=== PATIENT | female | born 1970 | race Caucasian/White ===

== ENCOUNTER 2016-11-17 08:07 | Emergency (ER) | payer OTHER ==
[~2016-11-17] VITALS: Ht 154.9 cm; Wt 107.3 kg
[~2016-11-17 08:07] MED LIST: ESTR1TAB2 PO; LEVO-18 PO; LOSARTAN-HCTZ PO; OXYB10TA13 PO
[2016-11-17 08:11] VITALS: TEMP 36.4; Ht 154.9 cm; Wt 107.3 kg
[2016-11-17] MEDS ORDERED: IBUPROFEN 800 MG TAB PO STA (08:26)
[2016-11-17] MEDS ORDERED: ASCA500 PO (08:29)
[2016-11-17] MEDS ORDERED: ZLF/100 PO (08:29)
[2016-11-17] MEDS ORDERED: ESOM20CA PO (08:29)
[2016-11-17] MEDS ORDERED: LPT10 PO (08:29)
--- NOTE | 2016-11-17 08:45 | DIAGNOSTIC IMAGING REPORT ---
CHEST ONE VIEW PORTABLE CLINICAL HISTORY: Hypertension. COMPARISON STUDY: Chest radiograph April 02, 2012. FINDINGS: Lower lung volumes are normal. No pneumothorax or pleural effusion is present. Linear left basilar opacity reflects subsegmental atelectasis or scarring. Pulmonary vascularity is normal. Cardiomediastinal silhouette is normal. Note is made of a possible opacity within the medial left lung base. IMPRESSION: Possible opacity within the medial left lung base. This could reflect artifact, airspace disease or a hiatal hernia. PA and lateral chest radiographs are recommended for further evaluation. Electronically signed by: Devonte Weber M.D. 11/17/2016 8:44 AM Dictated Date/Time: 11/17/2016 8:39 AM
--- NOTE | 2016-11-17 08:55 | EMERGENCY ROOM VISIT NOTE ---
History First contact with patient: 08:14 Chief Complaint: HYPERTENSION Stated Complaint: HIGH BLOOD PRESSURE History of Present Illness The patient is a 46 year old female who presents to the Emergency Room with complaints of high blood pressure. 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 She states that her blood pressure was 155/101. She states this is unusual for her. One week ago, she had her blood pressure checked at her doctor's office and it was 118/71. She states that today, she has a throbbing headache which she rates a 6/10 and blurred vision. The headache is not unusual for her, as she does frequently get headaches. The patient states that today, she checked her blood pressure and it was 166/108, which prompted her to come here. She has been on blood pressure medication in the past, but states that she was taken off this because her blood pressure was dropping too low. She did start a new supplement approximately one week ago called [employer]. She states this is a mix of vitamins that she is taking for weight loss. She denies a chest pain or shortness of breath. Review of Systems A complete 10 point review of systems was reviewed with the patient with pertinent positives and negatives as per history of present illness. All else were negative. Past Medical/Surgical History Medical Problems: (1) Benign hypertension (2) Bladder Surgery (3) Endometriosis s/p TAHBSO Social History Smoking Status: Never Smoker Alcohol Use: occasionally Drug Use: none Current/Historical Medications Scheduled Ascorbic Acid (Vitamin C), 1,500 MG PO DAILY Atorvastatin (Atorvastatin Calcium), 10 MG PO DAILY Esomeprazole Magnesium (Nexium), 40 MG PO DAILY Estradiol (Estrace), 1 MG PO DAILY Oxybutynin Chloride Er (Ditropan Xl), 15 MG PO DAILY Sertraline HCl (Sertraline HCl), 100 MG PO DAILY Physical Exam Vital Signs Date Time Temp Pulse Resp B/P (MAP) Pulse Ox O2 Delivery O2 Flow Rate FiO2 11/17/16 11:48 72 18 154/102 96 11/17/16 11:09 65 16 154/99 95 Room Air 11/17/16 09:53 68 18 185/109 98 Room Air 11/17/16 08:27 76 11/17/16 08:11 36.4 72 18 169/110 96 Room Air Physical Exam VITALS: Vitals are noted on the nurse's note and reviewed by myself. Vital signs stable. GENERAL: This is a 46-year-old female, in no acute distress, nondiaphoretic, well-developed well-nourished. HEAD: Normocephalic atraumatic. EARS: External auditory canals clear, tympanic membranes pearly zhong without erythema or effusion bilaterally. EYES: Pupils equal round and reactive to light and accommodation. Conjunctivae without injection, sclerae without icterus. Extraocular movements intact. MOUTH: Mucous membranes moist. NECK: Supple without nuchal rigidity. No lymphadenopathy. Cervical spine is nontender. HEART: Regular rate and rhythm without murmurs gallops or rubs. LUNGS: Clear to auscultation bilaterally without wheezes, rales or rhonchi. MUSCULOSKELETAL: Strength 5/5 throughout. NEURO: Patient was alert and oriented to person place and time. No focal neurological deficits. Medical Decision & Procedures ER Provider Diagnostic Interpretation: CHEST ONE VIEW PORTABLE CLINICAL HISTORY: Hypertension. COMPARISON STUDY: Chest radiograph April 02, 2012. FINDINGS: Lower lung volumes are normal. No pneumothorax or pleural effusion is present. Linear left basilar opacity reflects subsegmental atelectasis or scarring. Pulmonary vascularity is normal. Cardiomediastinal silhouette is normal. Note is made of a possible opacity within the medial left lung base. IMPRESSION: Possible opacity within the medial left lung base. This could reflect artifact, airspace disease or a hiatal hernia. PA and lateral chest radiographs are recommended for further evaluation. Laboratory Results 11/17/16 09:00 Red Blood Count 4.59, Mean Corpuscular Volume 86.7, Mean Corpuscular Hemoglobin 29.6, Mean Corpuscular Hemoglobin Concent 34.2, Mean Platelet Volume 10.4, Neutrophils (%) (Auto) 45.5, Lymphocytes (%) (Auto) 42.7, Monocytes (%) (Auto) 7.7, Eosinophils (%) (Auto) 3.3, Basophils (%) (Auto) 0.7, Neutrophils # (Auto) 3.13, Lymphocytes # (Auto) 2.94, Monocytes # (Auto) 0.53, Eosinophils # (Auto) 0.23, Basophils # (Auto) 0.05 11/17/16 09:00 Test 11/17/16 09:00 White Blood Count 6.89 K/uL (4.8-10.8) Red Blood Count 4.59 M/uL (4.2-5.4) Hemoglobin 13.6 g/dL (12.0-16.0) Hematocrit 39.8 % (37-47) Mean Corpuscular Volume 86.7 fL (80-100) Mean Corpuscular Hemoglobin 29.6 pg (25-34) Mean Corpuscular Hemoglobin Concent 34.2 g/dl (32-36) Platelet Count 258 K/uL (130-400) Mean Platelet Volume 10.4 fL (7.4-10.4) Neutrophils (%) (Auto) 45.5 % Lymphocytes (%) (Auto) 42.7 % Monocytes (%) (Auto) 7.7 % Eosinophils (%) (Auto) 3.3 % Basophils (%) (Auto) 0.7 % Neutrophils # (Auto) 3.13 K/uL (1.4-6.5) Lymphocytes # (Auto) 2.94 K/uL (1.2-3.4) Monocytes # (Auto) 0.53 K/uL (0.11-0.59) Eosinophils # (Auto) 0.23 K/uL (0-0.5) Basophils # (Auto) 0.05 K/uL (0-0.2) RDW Standard Deviation 40.8 fL (36.4-46.3) RDW Coefficient of Variation 12.8 % (11.5-14.5) Immature Granulocyte % (Auto) 0.1 % Immature Granulocyte # (Auto) 0.01 K/uL (0.00-0.02) Anion Gap 7.0 mmol/L (3-11) Est Creatinine Clear Calc Drug Dose 86.4 ml/min Estimated GFR () 87.6 Estimated GFR (Non- 75.6 BUN/Creatinine Ratio 23.2 (10-20) Calcium Level 9.4 mg/dl (8.5-10.1) Total Bilirubin 0.8 mg/dl (0.2-1) Aspartate Amino Transf (AST/SGOT) 33 U/L (15-37) Alanine Aminotransferase (ALT/SGPT) 39 U/L (12-78) Alkaline Phosphatase 138 U/L (45-117) Troponin I < 0.015 ng/ml (0-0.045) Total Protein 7.5 gm/dl (6.4-8.2) Albumin 3.9 gm/dl (3.4-5.0) Globulin 3.6 gm/dl (2.5-4.0) Albumin/Globulin Ratio 1.1 (0.9-2) Thyroid Stimulating Hormone (TSH) 1.360 uIu/ml (0.300-4.500) Medications Administered Medications (Trade) Dose Ordered Sig/Jailene Route Start Time Stop Time Status Last Admin Dose Admin Ibuprofen (Motrin Tab) 800 mg NOW STAT PO 11/17/16 08:26 11/17/16 08:27 DC 11/17/16 08:50 800 MG ED Course The patient was evaluated as above. Labs were drawn and IV access was obtained. Patient was reevaluated and blood pressure was rechecked. I had ordered 10 mg labetalol, however patient's BP is improved and this was not given. Discharge instructions were reviewed with the patient. The patient verbalized understanding of my assessment and treatment plan and was discharged home in good condition. Medical Decision Differential diagnosis includes uncontrolled hypertension, hypertensive urgency , hypertensive emergency, among others. The patient is a 46-year-old female who presents today complaining of high blood pressure. The patient checked her blood pressure yesterday and states that it was elevated. She then developed symptoms of a headache, which is not unusual for her. Her blood pressure was elevated on initial exam, however did improve significantly throughout her stay. Labs and EKG were unremarkable. The patient recently started taking an [id number] supplement which does have a stimulant component. I advised the patient to stop taking this. She was agreeable to this. She was instructed to follow-up with her primary care provider closely for blood pressure rechecks. She was agreeable to this. Based on the patient's presentation and work up, I feel the patient is stable for outpatient treatment. The patient was educated to return to the emergency department for any worsening of their current condition or new/concerning symptoms. She will follow up with her PCP. Medication Reconcilliation Current Medication List: was personally reviewed by me Blood Pressure Screening Patient's blood pressure: Elevated blood pressure Blood pressure disposition: Referred to PCP Impression Primary Impression: High blood pressure Departure Information Dispostion Home / Self-Care Condition GOOD Referrals Karan Fofana M.D. (PCP) Patient Instructions My [facility] Additional Instructions Recheck your blood pressure frequently for the next few days. Schedule a follow up appointment with your primary care provider in the next week. Stop taking the supplement. Return here for chest pain, shortness of breath, or any other new/concerning symptoms. Problem Qualifiers Primary Impression: High blood pressure
[2016-11-17 09:11] LABS: BASO % 0.7 %; BASO ABS # 0.05 K/uL (0-0.2); COMPLETE YES; EOS % 3.3 %; HEMATOCRIT 39.8 % (37-47); IG% 0.1 %; LYMPH % 42.7 %; LYMPH ABS # 2.94 K/uL (1.2-3.4); MEAN CELL VOLUME 86.7 fL (80-100); MEAN CORPUSCULAR HEMOGLOBIN 29.6 pg (25-34); MEAN CORPUSCULAR HGB CONC 34.2 g/dl (32-36); MEAN PLATELET VOLUME 10.4 fL (7.4-10.4); MONO % 7.7 %; NEUT % 45.5 %; PLATELET COUNT 258 K/uL (130-400); RED BLOOD COUNT 4.59 M/uL (4.2-5.4); WHITE BLOOD COUNT 6.89 K/uL (4.8-10.8)
[2016-11-17 09:42] LABS: ALT/SGPT 39 U/L (12-78); BLOOD UREA NITROGEN 21 mg/dl (7-18); BUN/CREATININE RATIO 23.2 (10-20); CALCIUM 9.4 mg/dl (8.5-10.1); CARBON DIOXIDE 25 mmol/L (21-32); CHLORIDE 110 mmol/L (98-107); GLUCOSE 100 mg/dl (70-99); POTASSIUM 3.6 mmol/L (3.5-5.1); SODIUM 142 mmol/L (136-145)
[2016-11-17 09:53] LABS: ALB/GLOB RATIO 1.1 (0.9-2); ALKALINE PHOSPHATASE 138 U/L (45-117); AST/SGOT 33 U/L (15-37)
[2016-11-17] MEDS ORDERED: LABETALOL HCL IV 5 MG/ML 20ML IV STA (11:03)
[2016-11-17 11:48] VITALS: BP 154/102; PULSE 72; O2SAT 96
== END 2016-11-17 11:45 | disposition home or self-care (01) ==
LOC: C.EDB 08:07
DX: I10 Essential (primary) hypertension (principal); Z90.710 Acquired absence of both cervix and uterus; Z79.899 Other long term (current) drug therapy

== ENCOUNTER 2017-02-08 20:18 | Emergency (ER) | payer OTHER ==
[~2017-02-08] VITALS: Ht 154.9 cm; Wt 107.8 kg
[~2017-02-08 20:18] MED LIST changes: +ASCA500 PO; +ESOM20CA PO; -LEVO-18 PO; -LOSARTAN-HCTZ PO; +LPT10 PO; +ZLF/100 PO
[2017-02-08 20:21] VITALS: TEMP 36.6; Ht 154.9 cm; Wt 107.8 kg
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
[2017-02-08 20:58] VITALS: O2SAT 98
[2017-02-08] MEDS ORDERED: HYZ/10015 PO (21:07)
[2017-02-08] MEDS ORDERED: OXYB15TA12 PO (21:08)
[2017-02-08 21:12] LABS: ISTAT CREATININE 1.1 mg/dl (0.6-1.3); ISTAT HEMOGLOBIN 13.6 g/dl (12.0-16.0); ISTAT IONIZED CALCIUM 1.21 mmol/l (1.12-1.32)
[2017-02-08] MEDS ORDERED: OPTIRAY 320 IV PRN (21:15)
[2017-02-08] MEDS ORDERED: ACETAMINOPHEN 500 MG TAB PO STA (21:46)
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
[2017-02-08] MEDS ORDERED: TRAMADOL HCL 50 MG HOME PACK PO ONE (22:15)
[2017-02-08 22:37] VITALS: BP 141/73; PULSE 76; O2SAT 97
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
== END 2017-02-08 22:35 | disposition home or self-care (01) ==
LOC: C.EDB 20:20 → C.EDC 22:35
DX: S30.1XXA Contusion of abdominal wall, initial encounter (principal); S39.012A Strain of muscle, fascia and tendon of lower back, initial encounter; R51 Headache; I10 Essential (primary) hypertension; Z79.899 Other long term (current) drug therapy; V40.5XXA Car driver injured in collision with pedestrian or animal in traffic accident, initial encounter; F17.200 Nicotine dependence, unspecified, uncomplicated

== ENCOUNTER 2017-05-22 15:22 | Emergency (ER) | payer OTHER ==
[~2017-05-22] VITALS: Ht 154.9 cm; Wt 103.1 kg
[~2017-05-22 15:22] MED LIST changes: -OXYB10TA13 PO
[2017-05-22 15:38] VITALS: TEMP 36.7; Ht 154.9 cm; Wt 103.1 kg
[2017-05-22] MEDS ORDERED: ONDANSETRON INJ 2 MG/ML 2 ML VIAL IV STA (16:03)
[2017-05-22] MEDS ORDERED: ACETAMINOPHEN 500 MG TAB PO STA (16:03)
[2017-05-22] MEDS ORDERED: FLUT0.15 NAE (16:37)
[2017-05-22] MEDS ORDERED: NXM/40 PO (16:37)
[2017-05-22 16:40] LABS: BASO % 0.4 %; BASO ABS # 0.04 K/uL (0-0.2); EOS % 2.1 %; EOS ABS # 0.19 K/uL (0-0.5); HEMATOCRIT 38.5 % (37-47); HEMOGLOBIN 13.3 g/dL (12.0-16.0); IG# 0.01 K/uL (0.00-0.02); LYMPH % 39.8 %; LYMPH ABS # 3.54 K/uL (1.2-3.4); MEAN CELL VOLUME 86.3 fL (80-100); MEAN CORPUSCULAR HEMOGLOBIN 29.8 pg (25-34); MEAN CORPUSCULAR HGB CONC 34.5 g/dl (32-36); MEAN PLATELET VOLUME 10.6 fL (7.4-10.4); MONO % 7.4 %; MONO ABS # 0.66 K/uL (0.11-0.59); NEUT % 50.2 %; NEUT ABS # 4.45 K/uL (1.4-6.5); PLATELET COUNT 245 K/uL (130-400); RED CELL DISTRIBUTION WIDTH CV 12.8 % (11.5-14.5); RED CELL DISTRIBUTION WIDTH SD 40.9 fL (36.4-46.3); WHITE BLOOD COUNT 8.89 K/uL (4.8-10.8)
--- NOTE | 2017-05-22 16:57 | DIAGNOSTIC IMAGING REPORT ---
GALLBLADDER-ABD LIMITED HISTORY: 46 years-old Female RUQ abd pain acute right upper quadrant abdominal pain COMPARISON: CT abdomen and pelvis 02/08/2017 TECHNIQUE: Multiple real-time sonographic images of the abdominal right upper quadrant were obtained assessing grayscale appearance and color flow FINDINGS: The imaged pancreas appears unremarkable. There is increased echogenicity of the liver with poor through transmission compatible with hepatic steatosis. No focal hepatic mass lesions or intrahepatic biliary ductal dilation. Liver measures up to 17.2 cm in length. The gallbladder is mildly contracted and demonstrates no wall thickening, cholelithiasis or pericholecystic fluid. Common bile duct is normal, 4 mm. The imaged right kidney is within normal limits without hydronephrosis. IMPRESSION: 1. No cholelithiasis or sonographic evidence of acute cholecystitis. 2. No biliary ductal dilation. 3. Hepatic steatosis. The above report was generated using voice recognition software. It may contain grammatical, syntax or spelling errors. Electronically signed by: Preston Negron M.D. 05/22/2017 4:56 PM Dictated Date/Time: 05/22/2017 4:54 PM
[2017-05-22 17:10] LABS: BLOOD UREA NITROGEN 21 mg/dl (7-18); CREATININE 0.99 mg/dl (0.60-1.20); GLUCOSE 89 mg/dl (70-99); SODIUM 140 mmol/L (136-145)
[2017-05-22 17:11] LABS: ALBUMIN 3.8 gm/dl (3.4-5.0); CALCIUM 9.3 mg/dl (8.5-10.1); CARBON DIOXIDE 23 mmol/L (21-32); POTASSIUM 3.5 mmol/L (3.5-5.1); TOTAL PROTEIN 7.6 gm/dl (6.4-8.2)
[2017-05-22 17:12] LABS: ALT/SGPT 33 U/L (12-78); AST/SGOT 25 U/L (15-37)
[2017-05-22 17:13] LABS: ALKALINE PHOSPHATASE 125 U/L (45-117); LIPASE 186 U/L (73-393)
[2017-05-22] MEDS ORDERED: KETOROLAC TROMETHAMINE 30 MG/ML VIAL IV STA (17:18)
[2017-05-22 18:40] VITALS: BP 134/82; PULSE 64; O2SAT 98
[2017-05-22] MEDS ORDERED: TRAM-10 PO (18:42)
[2017-05-22] MEDS ORDERED: ONDA4TAB10 SL (18:45)
--- NOTE | 2017-05-22 18:45 | EMERGENCY ROOM VISIT NOTE ---
History First contact with patient: 15:42 Chief Complaint: ABDOMINAL PAIN Stated Complaint: NAUSEATED AFTER EATING, PAIN IN RIGHT UPPER BELLY, Nursing Triage Summary: Patient states she has been having nausea after she eats for weeks. patient states she has pain in RUQ History of Present Illness The patient is a 46 year old female who presents to the Emergency Room via private vehicle with complaints of "nauseated after eating, pain in right upper belly". The patient states that for the past few weeks now she has been experiencing postprandial nausea and pain in the right upper quadrant. She states that she is concerned it is her gallbladder. It is been worsening over time. The pain is a 4/10 currently but at times will increase. She also notes a dull pain that will radiate to the right arm. She states that a couple years ago she had similar symptoms and had a gallbladder workup which was negative without treatment. There is been noted vomiting, or respiratory issues. There is no chest pain. She notes a mild fever this morning of 99.5F. There was some diarrhea this morning. Review of Systems A complete 10-point Review of Systems was discussed with the patient, with pertinent positives and negatives listed in the History of Present Illness. All remaining Review of Systems questions can be considered negative unless otherwise specified. Past Medical/Surgical History Medical Problems: (1) Benign hypertension (2) Bladder Surgery (3) Endometriosis s/p TAHBSO Family History No pertinent family history Social History Smoking Status: Former Smoker Alcohol Use: occasionally Drug Use: none Occupation Status: employed Current/Historical Medications Scheduled Ascorbic Acid (Vitamin C), 1,500 MG PO DAILY Atorvastatin (Lipitor), 10 MG PO DAILY Esomeprazole Magnesium (Nexium), 40 MG PO DAILY Estradiol (Estrace), 1 MG PO DAILY Hctz/Losartan (Hyzaar 25MG/100MG), 1 TAB PO DAILY Ondasetron Odt (Zofran Odt), 4 MG SL Q6H Oxybutynin Chloride (Ditropan Xl), 15 MG PO DAILY Sertraline HCl (Sertraline HCl), 100 MG PO DAILY Scheduled PRN Fluticasone Propionate (Nasal) (Flonase Allergy Relief), 2 SPRAYS DEIGO DAILY PRN for Allergy Symptoms Tramadol (Ultram), 1 TAB PO TID PRN for Pain Allergies Coded Allergies: JAI Inhibitors (Verified Adverse Reaction, Unknown, Cough, 05/22/17) Penicillins (Unverified Adverse Reaction, Unknown, YEAST INFECTION, 05/22/17 ) Physical Exam Vital Signs Date Time Temp Pulse Resp B/P (MAP) Pulse Ox O2 Delivery O2 Flow Rate FiO2 05/22/17 18:40 64 16 134/82 98 Room Air 05/22/17 17:13 141/78 05/22/17 17:11 62 18 96 Room Air 05/22/17 15:38 36.7 70 20 126/76 97 Room Air Physical Exam VITAL SIGNS - Vital signs and nursing notes were reviewed. Stable. GENERAL - 46-year-old female appearing her stated age who is in no acute distress. Communicates well with provider and answers questions appropriately. SKIN - Without rashes. No petechial rashes. HEAD - NC/AT. EYES - PERRL with EOMI bilaterally. Sclera anicteric. EARS - No deformities of external structures noted on gross examination bilaterally. NOSE - Midline and without cyanosis. No epistaxis or purulent drainage noted. MOUTH/OROPHARYNX - Without perioral cyanosis. LUNGS - Chest wall symmetric without accessory muscle use, intercostals retractions, or central cyanosis. Normal vesicular breath sounds CTA B/L. No wheezes, rales, or rhonchi appreciated. CARDIAC - RRR with S1/S2. No murmur, rubs, or gallops appreciated. ABDOMEN - Abdominal contour normal without pulsations or visible masses. BS normoactive all four quadrants. Right upper quadrant abdominal tenderness with positive Melgar sign noted. No other abdominal tenderness noted. Medical Decision & Procedures ER Provider Diagnostic Interpretation: GALLBLADDER-ABD LIMITED HISTORY: 46 years-old Female RUQ abd pain acute right upper quadrant abdominal pain COMPARISON: CT abdomen and pelvis 02/08/2017 TECHNIQUE: Multiple real-time sonographic images of the abdominal right upper quadrant were obtained assessing grayscale appearance and color flow FINDINGS: The imaged pancreas appears unremarkable. There is increased echogenicity of the liver with poor through transmission compatible with hepatic steatosis. No focal hepatic mass lesions or intrahepatic biliary ductal dilation. Liver measures up to 17.2 cm in length. The gallbladder is mildly contracted and demonstrates no wall thickening, cholelithiasis or pericholecystic fluid. Common bile duct is normal, 4 mm. The imaged right kidney is within normal limits without hydronephrosis. IMPRESSION: 1. No cholelithiasis or sonographic evidence of acute cholecystitis. 2. No biliary ductal dilation. 3. Hepatic steatosis. The above report was generated using voice recognition software. It may contain grammatical, syntax or spelling errors. Electronically signed by: Preston Negron M.D. 05/22/2017 4:56 PM Dictated Date/Time: 05/22/2017 4:54 PM Laboratory Results 05/22/17 16:15 Red Blood Count 4.46, Mean Corpuscular Volume 86.3, Mean Corpuscular Hemoglobin 29.8, Mean Corpuscular Hemoglobin Concent 34.5, Mean Platelet Volume 10.6, Neutrophils (%) (Auto) 50.2, Lymphocytes (%) (Auto) 39.8, Monocytes (%) (Auto) 7.4, Eosinophils (%) (Auto) 2.1, Basophils (%) (Auto) 0.4, Neutrophils # (Auto) 4.45, Lymphocytes # (Auto) 3.54, Monocytes # (Auto) 0.66, Eosinophils # (Auto) 0.19, Basophils # (Auto) 0.04 05/22/17 16:15 Test 05/22/17 16:07 05/22/17 16:15 Urine Color YELLOW Urine Appearance CLEAR (CLEAR) Urine pH 5.5 (4.5-7.5) Urine Specific [place] 1.018 (1.000-1.030) Urine Protein NEG (NEG) Urine Glucose (UA) NEG (NEG) Urine Ketones NEG (NEG) Urine Occult Blood NEG (NEG) Urine Nitrite NEG (NEG) Urine Bilirubin NEG (NEG) Urine Urobilinogen NEG (NEG) Urine Leukocyte Esterase MODERATE (NEG) Urine WBC (Auto) 5-10 /hpf (0-5) Urine RBC (Auto) 0-4 /hpf (0-4) Urine Hyaline Casts (Auto) 1-5 /lpf (0-5) Urine Epithelial Cells (Auto) 20-30 /lpf (0-5) Urine Bacteria (Auto) NEG (NEG) White Blood Count 8.89 K/uL (4.8-10.8) Red Blood Count 4.46 M/uL (4.2-5.4) Hemoglobin 13.3 g/dL (12.0-16.0) Hematocrit 38.5 % (37-47) Mean Corpuscular Volume 86.3 fL (80-100) Mean Corpuscular Hemoglobin 29.8 pg (25-34) Mean Corpuscular Hemoglobin Concent 34.5 g/dl (32-36) Platelet Count 245 K/uL (130-400) Mean Platelet Volume 10.6 fL (7.4-10.4) Neutrophils (%) (Auto) 50.2 % Lymphocytes (%) (Auto) 39.8 % Monocytes (%) (Auto) 7.4 % Eosinophils (%) (Auto) 2.1 % Basophils (%) (Auto) 0.4 % Neutrophils # (Auto) 4.45 K/uL (1.4-6.5) Lymphocytes # (Auto) 3.54 K/uL (1.2-3.4) Monocytes # (Auto) 0.66 K/uL (0.11-0.59) Eosinophils # (Auto) 0.19 K/uL (0-0.5) Basophils # (Auto) 0.04 K/uL (0-0.2) RDW Standard Deviation 40.9 fL (36.4-46.3) RDW Coefficient of Variation 12.8 % (11.5-14.5) Immature Granulocyte % (Auto) 0.1 % Immature Granulocyte # (Auto) 0.01 K/uL (0.00-0.02) Anion Gap 9.0 mmol/L (3-11) Est Creatinine Clear Calc Drug Dose 76.7 ml/min Estimated GFR () 78.1 Estimated GFR (Non- 67.4 BUN/Creatinine Ratio 21.2 (10-20) Calcium Level 9.3 mg/dl (8.5-10.1) Total Bilirubin 0.6 mg/dl (0.2-1) Aspartate Amino Transf (AST/SGOT) 25 U/L (15-37) Alanine Aminotransferase (ALT/SGPT) 33 U/L (12-78) Alkaline Phosphatase 125 U/L (45-117) Troponin I < 0.015 ng/ml (0-0.045) Total Protein 7.6 gm/dl (6.4-8.2) Albumin 3.8 gm/dl (3.4-5.0) Globulin 3.8 gm/dl (2.5-4.0) Albumin/Globulin Ratio 1.0 (0.9-2) Lipase 186 U/L (73-393) Chemistry Specimen Hemolysis Medications Administered Medications (Trade) Dose Ordered Sig/Jailene Route Start Time Stop Time Status Last Admin Dose Admin Acetaminophen (Tylenol Tab) 500 mg NOW STAT PO 05/22/17 16:03 05/22/17 16:04 DC 05/22/17 16:22 500 MG Ondansetron HCl (Zofran Inj) 4 mg NOW STAT IV 05/22/17 16:03 05/22/17 16:04 DC 05/22/17 16:22 4 MG Ketorolac Tromethamine (Toradol Inj) 30 mg NOW STAT IV 05/22/17 17:18 05/22/17 17:20 DC 05/22/17 17:42 30 MG Medical Decision Patient was seen and evaluated as above. She presents to us today with right upper quadrant abdominal pain worse after eating. After obtaining a thorough history and physical examination the above work up was performed. Ultrasound was performed. There is some contraction, however no evidence of acute cholecystitis. She is afebrile. No leukocytosis. No anemia. Metabolic panel reveals no kidney or liver failure. Troponin negative. Bedside EKG was also performed secondary to the location of the patient's pain in the abdomen and reveals normal sinus rhythm per my interpretation, rate of 60 bpm. There is no ectopy or ischemic change and was compared to EKG performed on November 2016 and no significant change was found. I suspect the patient is likely experiencing biliary colic. I do recommend follow-up with family doctor and potential referral to general surgeon. She is to return with worsening. She will be prescribed a short course of pain medication. While here she was given Toradol, Tylenol and Zofran. She appears stable for outpatient management. The patient was educated upon management, had questions answered prior to discharge, and was discharged home in good condition. In the evaluation and treatment of this patient the following differential diagnoses were entertained: Acute cholecystitis, biliary colic, pancreatitis, ascending cholangitis, among others. Impression Primary Impression: RUQ abdominal pain Departure Information Dispostion Home / Self-Care Condition GOOD Prescriptions Ondasetron Odt (ZOFRAN ODT) 4 Mg Tab 4 MG SL Q6H for Nausea, #15 TAB Prov: Romel Green, JOSÉ MIGUEL 05/22/17 Tramadol (Ultram) 50 Mg Tab 1 TAB PO TID Y for Pain for 3 Days, #9 TAB For initial treatment Prov: Romel Green PA-C 05/22/17 Referrals Karan Fofana M.D. (PCP) Patient Instructions [facility] Additional Instructions You have been treated in the Emergency Department your Abdominal Pain. Laboratory results and imaging studies have ruled out any emergent causes for your abdominal pain which would warrant admission or surgery today. You have been prescribed Tramadol to be used for pain control. This is a narcotic medication. You cannot drive or consume alcohol while on this medicine. This medicine should only be used for pain that cannot be controlled with [id number] pain medicines. You have been prescribed zofran to be used for any nausea or vomiting. Take as prescribed. For pain control, you can use the following [id number] medicines: - Regular strength (325mg/tab) Tylenol (acetaminophen) 2 tabs every 4-6 hours as needed. Do not exceed 12 tablets in a 24 hour period. Avoid taking more than 3 grams (3000 mg) of Tylenol per day. This includes any other sources of acetaminophen you may take on a regular basis. - Regular strength (200 mg/tab) Advil (ibuprofen) 1-2 tabs every 4-6 hours as needed. Do not exceed a dose of 3200 mg per day. Drink plenty of water and stay well hydrated. As with any trip to the Emergency Department, you should follow-up with your Primary Care Provider from today's visit. Follow up with Gen surgery for further evaluation and management Dr. Pancho Chaudhry Address: [address] [place] [address] , [place] [address] Return to the emergency department if your symptoms persist despite treatment plan outlined above or if the following symptoms occur: increased fevers, chills , worsening nausea/vomiting, blood in your stool or urine.
[2017-05-22] MEDS ORDERED: HYZ/10015 PO (21:07)
[2017-05-22] MEDS ORDERED: OXYB15TA12 PO (21:08)
== END 2017-05-22 18:49 | disposition home or self-care (01) ==
LOC: C.EDB 15:24 → C.EDC 18:49
DX: R10.11 Right upper quadrant pain (principal); R11.0 Nausea; I10 Essential (primary) hypertension; Z87.890 Personal history of sex reassignment; Z79.899 Other long term (current) drug therapy; Z88.0 Allergy status to penicillin; Z88.8 Allergy status to other drugs, medicaments and biological substances

== ENCOUNTER → 2017-10-20 | Outpatient (CLI) | payer OTHER ==
[~2017-10-20] MED LIST changes: +BENZ100C84 PO; -ESOM20CA PO; +FLUT0.15 NAE; +HYZ/10015 PO; +NXM/40 PO; +ONDA4TAB10 SL; +OXYB15TA12 PO; +VNTHFA/IN INH
== END | disposition home or self-care (01) ==
LOC: C.RDSM 09:50
PROVIDERS: ATTEND Physical Medicine & Rehabilitation Sports Medicine
DX: M25.561 Pain in right knee (principal); M25.562 Pain in left knee; M79.672 Pain in left foot

== ENCOUNTER 2021-07-02 16:45 | Inpatient (IN) ==
--- NOTE | 2021-07-02 17:30 | Emergency Department Note ---
History of Present Illness General Chief complaint: Flank Pain Stated complaint: PAIN BY KIDNEY AREA, BLOOD IN URINE Time Seen by Provider: 07/02/21 17:24 History of Present Illness Maximum Pain Intensity: 8 This is a 50-year-old female that presents to the emergency department via private vehicle with complaints of "pain by kidney area, blood in urine". The patient notes earlier today this morning she began with pain that radiates to the left lower quadrant. She also notes blood tinged urine. She denies any trauma, injury, fevers, chills, nausea or vomiting. She does note a history of gastric bypass. She denies any history of kidney stones. No other urinary symptoms. Current pain 10/24. Home Medications Medication Instructions Recorded Confirmed Type atorvastatin 10 mg tablet 10 mg PO HS 07/02/21 07/02/21 History biotin 800 mcg tablet 800 mcg PO DAILY 07/02/21 07/02/21 History calcium carbonate 500 mg-vitamin 2 tab PO HS 07/02/21 07/02/21 History D3 3.125 mcg (125 unit) tablet ferrous sulfate 325 mg (65 mg 325 mg PO DAILY 07/02/21 07/02/21 History iron) tablet oxybutynin chloride 15 mg 15 mg PO DAILY 07/02/21 07/02/21 History tablet,extended release 24 hr pantoprazole 40 mg tablet,delayed 40 mg PO DAILY 07/02/21 07/02/21 History release pediatric multivitamin no.76 2 tab PO DAILY 07/02/21 07/02/21 History (Flintstones Complete) sertraline 100 mg tablet 150 mg PO DAILY 07/02/21 07/02/21 History Allergies Allergy/AdvReac Type Severity Reaction Status Date / Time prednisone Allergy Unknown UNKNOWN Verified 07/02/21 22:20 JAI Inhibitors AdvReac Unknown Cough Verified 07/02/21 22:20 Penicillins AdvReac Unknown YEAST Verified 07/02/21 22:20 INFECTION Past Med/Surg History Medical History Asthma Dyslipidemia GERD (gastroesophageal reflux disease) High blood pressure Surgical History History of hysterectomy Social History Smoking Status: Former smoker Tobacco Type: Cigarettes Do You Dip or Chew Tobacco: No; Hx Alcohol Use: Yes Alcohol type: hard liquor Hx Substance Use: No Preferred Language: Bolivian Communication Ability: Effective Car Supervisor Required: No Beliefs That Will Affect Care: None Current Living Situation: Spouse Other Information That Helps Us Care for You: No Feels Safe at Home: Yes Safety Concerns: Feels Safe At This Time Assistive Devices: None Review of Systems A total of 10 systems reviewed and were otherwise negative Physical Exam Vital Signs Vital Signs - 24 hr 07/02/21 16:52 07/02/21 20:10 07/02/21 21:33 Temperature 36.6 C Temperature Source Temporal Artery Scan Pulse Rate 71 Pulse Rate [Apical] 70 72 Pulse Rhythm [Apical] Regular Pulse Strength [Apical] Normal Respiratory Rate 17 20 19 Respiratory Effort / Characteristics Non-Labored Spontaneous Non-Labored Spontaneous Respiratory Depth Normal Normal Respiratory Pattern Regular Regular Blood Pressure 144/86 H Blood Pressure [Left Arm] 155/90 H 126/82 Blood Pressure Mean 105 Blood Pressure Mean [Left Arm] 111 96 Blood Pressure Position Sitting Blood Pressure Position [Left Arm] Semi-fowlers Pulse Oximetry 99 97 99 Oxygen Delivery Method Room Air Room Air Room Air Sepsis Recent Fever Within 48 Hours No Sepsis New/Unexplained Change in Mental Status N/A Sepsis Action Taken by Nursing No Action Required VITAL SIGNS - Vital signs and nursing notes were reviewed. Stable and afebrile. GENERAL -50-year-old female appearing her stated age who is in no acute distress. Communicates well with provider and answers questions appropriately. SKIN - Without rashes. No meningeal or petechial rash. HEAD - NC/AT. MOUTH/OROPHARYNX - Without perioral cyanosis. NECK - Neck with FROM. No nuchal rigidity. LUNGS - Chest wall symmetric without accessory muscle use, intercostals retra ctions, or central cyanosis. Normal vesicular breath sounds CTA B/L. No wheezes, rales, or rhonchi appreciated. CARDIAC - RRR with S1/S2. No murmur, rubs, or gallops appreciated. ABDOMEN - Abdominal contour normal without pulsations or visible masses. BS normoactive all four quadrants. No tenderness, palpable masses, hepatosplenomegaly, or ascites noted. EXTREMITIES - No clubbing or peripheral cyanosis. +5/5 strength noted in UE/LE bilaterally. NEUROLOGIC - Cranial nerves II through XII grossly intact. PSYCH - A&O, and cooperates fully with examiner. Pt is very pleasant and interacts well with examiner. Course Administered Medications Sodium Chloride (Nss 1000ml) 1,000 mls @ 125 mls/hr IV .Q8H NAS Stop: 08/02/21 01:10 Last Admin: 07/03/21 01:21 Dose: 125 mls/hr Documented by: [id number] Tamsulosin HCl (Tamsulosin Hcl 0.4 Mg Cap) 0.4 mg PO HS NAS Stop: 08/02/21 01:10 Last Admin: 07/03/21 01:56 Dose: 0.4 mg Documented by: [id number] Discontinued Medications Sodium Chloride (Nss 1000ml) 500 mls @ 500 mls/hr IV .Q1H ONE Stop: 07/02/21 18:32 Last Infusion: 07/02/21 18:51 Dose: 0 mls/hr Documented by: [id number] Admin: 07/02/21 17:42 Dose: 500 mls/hr Documented by: [id number] Morphine Sulfate (Morphine Sulfate 4 Mg/Ml 1 Ml Carp\\Vial) 4 mg IV NOW STA Stop: 07/02/21 17:34 Last Admin: 07/02/21 17:40 Dose: 4 mg Documented by: [id number] Morphine Sulfate (Morphine Sulfate 4 Mg/Ml 1 Ml Carp\\Vial) 4 mg IV NOW STA Stop: 07/02/21 19:16 Last Admin: 07/02/21 19:33 Dose: 4 mg Documented by: [id number] Morphine Sulfate (Morphine Sulfate 2 Mg/Ml Carp) 2 mg IV NOW STA Stop: 07/02/21 23:53 Last Admin: 07/03/21 00:24 Dose: 2 mg Documented by: [id number] Ondansetron HCl (Ondansetron Inj 2 Mg/Ml 2 Ml Vial) 4 mg IV NOW STA Stop: 07/02/21 17:34 Last Admin: 07/02/21 17:40 Dose: 4 mg Documented by: [id number] Ondansetron HCl (Ondansetron Inj 2 Mg/Ml 2 Ml Vial) 4 mg IV NOW STA Stop: 07/02/21 20:15 Last Admin: 07/02/21 20:17 Dose: 4 mg Documented by: [id number] Medical Decision Making Laboratory Data Result diagrams: 07/02/21 17:38 07/02/21 17:38 Lab Results 07/02/21 07/02/21 07/02/21 Range/Units 17:33 17:38 17:38 WBC 9.85 (4.8-10.8) K/uL RBC 4.41 (4.2-5.4) M/uL Hgb 14.0 (12.0-16.0) g/dL Hct 40.1 (37-47) % MCV 90.9 (80-100) fL MCH 31.7 (25-34) pg MCHC 34.9 (32-36) g/dL RDW Std Deviation 42.9 (36.4-46.3) fL RDW Coeff of Yoshi 12.9 (11.5-14.5) % Plt Count 271 (130-400) K/uL MPV 10.6 H (7.4-10.4) fL Immature Gran % (Auto) 0.2 % Neut % (Auto) 61.6 % Lymph % (Auto) 28.5 % Bailey % (Auto) 7.4 % Eos % (Auto) 1.7 % Baso % (Auto) 0.6 % Neut # (Auto) 6.06 (1.4-6.5) K/uL Lymph # (Auto) 2.81 (1.2-3.4) K/uL Bailey # (Auto) 0.73 H (0.11-0.59) K/uL Eos # (Auto) 0.17 (0-0.5) K/uL Baso # (Auto) 0.06 (0-0.2) K/uL Immature Gran # (Auto) 0.02 (0.00-0.02) K/uL Sodium 141 (136-145) mmol/L Potassium 3.6 (3.5-5.1) mmol/L Chloride 110 H (98-107) mmol/L Carbon Dioxide 25 (21-32) mmol/L Anion Gap 6 (3-11) BUN 18 (6-23) mg/dl Creatinine 0.72 (0.6-1.2) mg/dl Est Cr Clr Drug Dosing 85.2 ml/min Est GFR ( Amer) 111.6 ml/min Est GFR (Non-Af Amer) 96.3 ml/min BUN/Creatinine Ratio 25.0 H (10-20) Glucose 151 H (70-99(Fasting)) mg/dl Calcium 9.7 (8.5-10.1) mg/dl Total Bilirubin 0.8 (0.2-1.0) mg/dl AST 34 (13-39) U/L ALT 38 (7-52) U/L Alkaline Phosphatase 149 H (34-104) U/L Total Protein 7.1 (6.0-8.3) gm/dl Albumin 4.2 (3.4-5.0) gm/dl Globulin 2.9 (2.5-4.0) gm/dl Albumin/Globulin Ratio 1.4 (0.9-2) Urine Color Yellow Urine Appearance Clear (Clear) Urine pH 6.0 (4.5-7.5) Ur Specific Sparks 1.007 (1.000-1.030) Urine Protein Negative (Negative) Urine Glucose (UA) Negative (Negative) Urine Ketones Negative (Negative) Urine Blood 3+ H (Negative) Urine Nitrite Negative (Negative) Urine Bilirubin Negative (Negative) Urine Urobilinogen Negative (Negative) Ur Leukocyte Esterase 2+ H (Negative) Urine WBC (Auto) 10-30 H (0-5) /hpf Urine RBC (Auto) >30 H (0-4) /hpf U Hyaline Cast (Auto) 1-5 (0-5) /lpf U Epithel Cells (Auto) 10-20 H (0-5) /lpf Urine Bacteria (Auto) Negative (Negative) Urine Yeast Not Reportable SARS-CoV-2, RNA, NAAT (NEGATIVE) 07/02/21 07/02/21 Range/Units 20:02 21:25 WBC (4.8-10.8) K/uL RBC (4.2-5.4) M/uL Hgb (12.0-16.0) g/dL Hct (37-47) % MCV (80-100) fL MCH (25-34) pg MCHC (32-36) g/dL RDW Std Deviation (36.4-46.3) fL RDW Coeff of Yoshi (11.5-14.5) % Plt Count (130-400) K/uL MPV (7.4-10.4) fL Immature Gran % (Auto) % Neut % (Auto) % Lymph % (Auto) % Bailey % (Auto) % Eos % (Auto) % Baso % (Auto) % Neut # (Auto) (1.4-6.5) K/uL Lymph # (Auto) (1.2-3.4) K/uL Bailey # (Auto) (0.11-0.59) K/uL Eos # (Auto) (0-0.5) K/uL Baso # (Auto) (0-0.2) K/uL Immature Gran # (Auto) (0.00-0.02) K/uL Sodium (136-145) mmol/L Potassium (3.5-5.1) mmol/L Chloride (98-107) mmol/L Carbon Dioxide (21-32) mmol/L Anion Gap (3-11) BUN (6-23) mg/dl Creatinine (0.6-1.2) mg/dl Est Cr Clr Drug Dosing ml/min Est GFR ( Amer) ml/min Est GFR (Non-Af Amer) ml/min BUN/Creatinine Ratio (10-20) Glucose (70-99(Fasting)) mg/dl Calcium (8.5-10.1) mg/dl Total Bilirubin (0.2-1.0) mg/dl AST (13-39) U/L ALT (7-52) U/L Alkaline Phosphatase (34-104) U/L Total Protein (6.0-8.3) gm/dl Albumin (3.4-5.0) gm/dl Globulin (2.5-4.0) gm/dl Albumin/Globulin Ratio (0.9-2) Urine Color Yellow Urine Appearance Clear (Clear) Urine pH 6.5 (4.5-7.5) Ur Specific Sparks 1.005 (1.000-1.030) Urine Protein Negative (Negative) Urine Glucose (UA) Negative (Negative) Urine Ketones Negative (Negative) Urine Blood 3+ H (Negative) Urine Nitrite Negative (Negative) Urine Bilirubin Negative (Negative) Urine Urobilinogen Negative (Negative) Ur Leukocyte Esterase 1+ H (Negative) Urine WBC (Auto) 1-5 (0-5) /hpf Urine RBC (Auto) 5-10 H (0-4) /hpf U Hyaline Cast (Auto) 0 (0-5) /lpf U Epithel Cells (Auto) 5-10 H (0-5) /lpf Urine Bacteria (Auto) Negative (Negative) Urine Yeast SARS-CoV-2, RNA, NAAT NEGATIVE (NEGATIVE) Imaging Data Radiologist's Impression: Abdomen/Pelvis CT 07/02/21 17:[address] WITHOUT CONTRAST CT DOSE: 539.88 mGy.cm HISTORY: Acute left-sided flank pain with hematuria L flank pain TECHNIQUE: Multiaxial CT images of the abdomen and pelvis were performed without contrast. A dose lowering technique was utilized adhering to the principles of ALARA. COMPARISON STUDY: CT abdomen and pelvis 02/08/2017 FINDINGS: The imaged lower chest is unremarkable. No pneumatosis or pneumoperitoneum. Prior gastric bypass. The unenhanced spleen, pancreas, is mildly distended gallbladder, adrenal glands and liver appear unremarkable. Unremarkable right kidney. 4 mm nonobstructing calculus of the superior pole left kidney. There are a few cysts of the left kidney measuring up to 3.8 cm. Mild left-sided hydroureteronephrosis with mild perinephric and periureteral inflammatory stranding. There is a 4 mm calcification within the left hemipelvis on image 360. Unremarkable urinary bladder. No adnexal mass lesions. Aorta and IVC are unremarkable. No bowel obstruction or bowel wall thickening. Scattered small bowel air-fluid levels are likely physiologic. Mild colonic diverticulosis. Normal appendix. Unremarkable soft tissues. Degenerative changes of the spine, pelvis and hips. IMPRESSION: 1. Mild left-sided hydroureteronephrosis. There is a 4 mm calcification within the left hemipelvis which likely represents a distal ureteral calculus. Correlate with urinalysis. 2. Nonobstructing left nephrolithiasis. 3. No bowel obstruction or bowel wall thickening. Normal appendix. 4. Additional findings as above. ACT 112: Negative or not required by law. The above report was generated using voice recognition software. It may contain grammatical, syntax or spelling errors. Electronically signed by: Reece Negron M.D. 07/02/2021 6:43 PM [facility] Narrative Patient was seen and evaluated as above in room B10. Review was performed of nursing notes and vital signs. After obtaining a thorough history and physical examination the above work up was performed. Patient presents to us today for evaluation of left flank discomfort and hematuria. She does not have any known history of kidney stones. She clinically appears well. She is nontoxic. No infectious symptoms. Options of care were discussed with the patient. IV access was established. Labs were drawn. No leukocytosis or concerning anemia. No emergent metabolic disturbance. Urinalysis initially revealed what is likely a contaminated sample. This did prompt a urine culture reflex. I was not convinced that there was any infectious etiology to her presentation therefore had repeat sample performed with more of a clean-catch. This revealed what appears to be findings consistent with kidney stone without any associated infection. COVID testing negative. CT scan was obtained of the abdomen pelvis. Results of this as ab ove. Patient does have what appears to be a 4 mm distal left ureteral calculus that is likely obstructing. This is clinically correlated. Patient was provided antiemetics and analgesics here as well as IV fluids. She continued with pain and nausea. It is felt that further evaluation and management is warranted in the inpatient setting. Patient desires to stay in the hospital at the present time given her symptoms. I believe this is reasonable. Case discussed with the hospitalist. Please refer to further documentation regarding her stay. GCS: 15 In the evaluation and treatment of this patient the following differential diagnoses were entertained: UTI, pyelonephritis, kidney stone, obstruction, diverticulitis, among others. Impression & Plan Acute left flank pain, Calculus of distal left ureter, Hydroureteronephrosis Discharge Plan Visit Data Chief Complaint: Flank Pain Stated Complaint: PAIN BY KIDNEY AREA, BLOOD IN URINE ED Provider: Augustin Lombardi ED Midlevel Provider: Romel Green Discharge Problem: Acute left flank pain, Calculus of distal left ureter, Hydroureteronephrosis Patient Disposition: Admitted As Inpatient Condition: Good Discharge Instructions Interventions: ED Discharge Assessment Last Done: 07/03/21 01:02
[2021-07-02] MEDS ORDERED: ONDANSETRON INJ 2 MG/ML 2 ML VIAL IV STA ×2 (17:33→20:14)
[2021-07-02] MEDS ORDERED: SODIUM CHLORIDE 0.9% 1000ML 500 ML IV ONE (17:33)
[2021-07-02] MEDS ORDERED: MoRPHine SULFATE 4 MG/ML 1 ML CARP\\VIAL IV STA ×2 (17:33→19:15)
[2021-07-02 17:50] LABS: Basophils # (auto) 0.06 K/uL (0-0.2); Basophils % (auto) 0.6 %; Eosinophils # (auto) 0.17 K/uL (0-0.5); Eosinophils % (auto) 1.7 %; Hematocrit (blood only) 40.1 % (37-47); Immature Granulocytes # (auto) 0.02 K/uL (0.00-0.02); Immature Granulocytes % (auto) 0.2 %; Lymphocytes # (auto) 2.81 K/uL (1.2-3.4); Lymphocytes % (auto) 28.5 %; Mean Corpuscular Hemoglobin 31.7 pg (25-34); Mean Corpuscular Hgb Conc 34.9 g/dL (32-36); Mean Corpuscular Volume 90.9 fL (80-100); Mean Platelet Volume 10.6 fL (7.4-10.4); Monocytes # (auto) 0.73 K/uL (0.11-0.59); Monocytes % (auto) 7.4 %; Neutrophils # (auto) 6.06 K/uL (1.4-6.5); Neutrophils % (auto) 61.6 %; Platelet Count 271 K/uL (130-400); RDW Coefficient of Variation 12.9 % (11.5-14.5); RDW Standard Deviation 42.9 fL (36.4-46.3); Red Blood Count 4.41 M/uL (4.2-5.4); White Blood Count 9.85 K/uL (4.8-10.8)
[2021-07-02 18:14] LABS: Appearance Urine Clear (Clear); Bacteria Urine Automated Negative (Negative); Bilirubin Urine Negative (Negative); Blood Urine 3+ (Negative); Color Urine Yellow; Glucose Urine UA Negative (Negative); Ketones Urine Negative (Negative); Leukocyte Esterase Urine 2+ (Negative); Nitrite Urine Negative (Negative); Protein Urine Negative (Negative); Specific Gravity Urine 1.007 (1.000-1.030); Urobilinogen Urine Negative (Negative)
[2021-07-02 18:18] LABS: Albumin Globulin Ratio 1.4 (0.9-2); Albumin Level 4.2 gm/dl (3.4-5.0); Bilirubin,Total 0.8 mg/dl (0.2-1.0); Calcium 9.7 mg/dl (8.5-10.1); Creatinine Clr Calc Pharmacy 85.2 ml/min; Est GFR (African American) 111.6 ml/min; Est GFR (Non-African American) 96.3 ml/min; Globulin 2.9 gm/dl (2.5-4.0); Potassium 3.6 mmol/L (3.5-5.1); Total Protein 7.1 gm/dl (6.0-8.3)
--- NOTE | 2021-07-02 18:46 | CT Scan Report ---
ABDOMEN AND PELVIS CT WITHOUT CONTRAST CT DOSE: 539.88 mGy.cm HISTORY: Acute left-sided flank pain with hematuria L flank pain TECHNIQUE: Multiaxial CT images of the abdomen and pelvis were performed without contrast. A dose lo wering technique was utilized adhering to the principles of ALARA. COMPARISON STUDY: CT abdomen and pelvis 02/08/2017 FINDINGS: The imaged lower chest is unremarkable. No pneumatosis or pneumoperitoneum. Prior gastric b ypass. The unenhanced spleen, pancreas, is mildly distended gallbladder, adrenal glands and liver kassy ear unremarkable. Unremarkable right kidney. 4 mm nonobstructing calculus of the superior pole left kidney. There are a few cysts of the left kidney measuring up to 3.8 cm. Mild left-sided hydroureteronephrosis with mild perinephric and periureteral inflammatory stranding. There is a 4 mm calcification within the left h emipelvis on image 360. Unremarkable urinary bladder. No adnexal mass lesions. Aorta and IVC are unre markable. No bowel obstruction or bowel wall thickening. Scattered small bowel air-fluid levels are likely phys iologic. Mild colonic diverticulosis. Normal appendix. Unremarkable soft tissues. Degenerative change s of the spine, pelvis and hips. IMPRESSION: 1. Mild left-sided hydroureteronephrosis. There is a 4 mm calcification within the left hemipelvis wh ich likely represents a distal ureteral calculus. Correlate with urinalysis. 2. Nonobstructing left nephrolithiasis. 3. No bowel obstruction or bowel wall thickening. Normal appendix. 4. Additional findings as above. ACT 112: Negative or not required by law. The above report was generated using voice recognition software. It may contain grammatical, syntax o r spelling errors. Electronically signed by: Reece Negron M.D. 07/02/2021 6:43 PM
[2021-07-02 18:52] LABS: RBC Urine Automated >30 /hpf (0-4)
[2021-07-02 21:18] LABS: Appearance Urine Clear (Clear); Bacteria Urine Automated Negative (Negative); Bilirubin Urine Negative (Negative); Blood Urine 3+ (Negative); Cast Urine Automated 0 /lpf (0-5); Color Urine Yellow; Glucose Urine UA Negative (Negative); Ketones Urine Negative (Negative); Leukocyte Esterase Urine 1+ (Negative); Nitrite Urine Negative (Negative); Protein Urine Negative (Negative); Specific Gravity Urine 1.005 (1.000-1.030); Urobilinogen Urine Negative (Negative); pH Urine 6.5 (4.5-7.5)
--- NOTE | 2021-07-02 22:53 | Urology Consultation ---
Date of Consultation July 02, 2021 Assessment & Plan (1) Nephrolithiasis: Patient is being admitted on the hospitalist service. Recommend proceeding as follows: Provide analgesics provide antiemetics Provide hydration measures IV fluids Consider initiating Flomax to help expel her kidney stone Strain all urine so kidney stones that are passed can be analyzed I discussed with the patient she has a 4 mm stone that will hopefully pass on its own without intervention. In the event that the stone does not pass she has been made n.p.o. in case cystoscopic intervention is required tomorrow I not feel the patient requires urgent urologic intervention at this time as she does not have signs of sepsis (afebrile, no leukocytosis, normotensive, not tachycardic, urinalysis not indicative of infection) and she does not have acute kidney injury Will monitor the patient's progress with additional recommendations to follow History of Present Illness Reason for Consultation: Nephrolithiasis History of Present Illness This is a 50-year-old female who developed some left-sided flank pain with radiation to her abdomen. She notes that she has had associated nausea vomiting. She denies any fevers, shakes, chills. She denies any dysuria but does note urinary frequency and hematuria. She reports that she has never had kidney stones in the past. In the emergency department today the patient had labs and imaging which independently reviewed. A CT scan of the abdomen and pelvis showed a 4 mm distal ureteral kidney stone resulting in mild left-sided hydronephrosis. Labs include a CBC her white blood cell count, hemoglobin, hematocrit, and platelet count were all normal. Chemistry profile showed sodium, potassium, BUN, and creatinine were all normal. Urinalysis was negative for nitrite and showed 1+ leukocyte Estrace. There were only 1-5 white blood cells per high-power field and the specimen was negative for bacteria. COVID test was performed and was noted be negative. At the time of my interview the patient was resting comfortably in bed and was in no distress. Allergies Allergy/AdvReac Type Severity Reaction Status Date / Time prednisone Allergy Unknown UNKNOWN Verified 07/02/21 22:20 JAI Inhibitors AdvReac Unknown Cough Verified 07/02/21 22:20 Penicillins AdvReac Unknown YEAST Verified 07/02/21 22:20 INFECTION Home Medications Medication Instructions Recorded Confirmed Type atorvastatin 10 mg tablet 10 mg PO HS 07/02/21 07/02/21 History biotin 800 mcg tablet 800 mcg PO DAILY 07/02/21 07/02/21 History calcium carbonate 500 mg-vitamin 2 tab PO HS 07/02/21 07/02/21 History D3 3.125 mcg (125 unit) tablet ferrous sulfate 325 mg (65 mg 325 mg PO DAILY 07/02/21 07/02/21 History iron) tablet oxybutynin chloride 15 mg 15 mg PO DAILY 07/02/21 07/02/21 History tablet,extended release 24 hr pantoprazole 40 mg tablet,delayed 40 mg PO DAILY 07/02/21 07/02/21 History release pediatric multivitamin no.76 2 tab PO DAILY 07/02/21 07/02/21 History (Flintstones Complete) sertraline 100 mg tablet 150 mg PO DAILY 07/02/21 07/02/21 History Patient History Medical History Asthma Dyslipidemia GERD (gastroesophageal reflux disease) High blood pressure Surgical History History of hysterectomy Social History Smoking Status: Former smoker Tobacco Type: Cigarettes Preferred Language: [place] Feels Safe at Home: Yes Review of Systems Constitutional: no fever and no chills Eyes: + corrective lenses Ear, Nose, Mouth, Throat: no ear pain Respiratory: no cough and no dyspnea Cardiovascular: no chest pain Gastrointestinal: + nausea and + vomiting Genitourinary: as per Subjective / HPI Musculoskeletal: + back pain (Left-sided flank pain) Integumentary: no rash Neurologic: no localized weakness Physical Exam Constitutional: WD/WN, vitals as above Eyes: Wears glasses ENMT: Ears: no hearing impairment Mouth: no oropharynx abnormality Neck: trachea midline Respiratory: normal respiratory effort, lungs clear to auscultation Cardiovascular: Rate/Rhythm: regular rate and regular rhythm Gastrointestinal (Abdomen): Soft and nondistended. There is minimal tenderness to palpation in the left lower quadrant Musculoskeletal: No calf tenderness Skin: no rashes Neurologic: moves all extremities Psychiatric: A+Ox3, euthymic affect Genitourinary: + CVA tenderness (Left-sided, noted with percussion) Results & Data ([facility]) Vital Signs (Past 12 Hours) Vital Signs Temp Pulse Pulse Resp BP BP Pulse Ox 07/02/21 21:33 72 19 126/82 99 07/02/21 20:10 70 20 155/90 H 97 07/02/21 16:52 36.6 C 71 17 144/86 H 99 PG Care Time/CCT Total # of Minutes Spent Total Time Spent with Patient: Total time spent is greater than 50% in coordination of care (as documented) at patient's floor/unit and/or counseling patient: Coding Level of Care Code 98740 Inpt Consult Level 5 Diagnoses Nephrolithiasis N20.0
[2021-07-02] MEDS ORDERED: MoRPHine SULFATE 2 MG/ML CARP IV STA (23:52)
--- NOTE | 2021-07-03 00:30 | History and Physical Report ---
DATE OF ADMISSION: 07/02/2021. CHIEF COMPLAINT: Left flank pain. HISTORY OF PRESENT ILLNESS: This is a 50-year-old female with past medical history significant for hyperlipidemia, prediabetes, recurrent sinusitis, hypertension, status post gastric bypass, history of migraines, depression, mixed urge and stress incontinence, generalized anxiety disorder, presents with left flank pain starting today morning and also some blood in the urine. The pain is radiating from the left flank to the groin. No burning micturition, no fevers, no nausea, no vomiting. Currently, the patient in the ER required couple doses of pain medication and nausea medication. Still she is having pain. Imaging studies showed 4 mm left distal ureteral calculus. Hemodynamically stable. Denies any headache, no blurred visions, no earache, no runny nose, no sore throat, no cough, no shortness of breath, no chest pain, no diarrhea or constipation. No swelling in the legs. ALLERGIES: PREDNISONE, JAI INHIBITORS, PENICILLINS. PAST MEDICAL HISTORY: As mentioned above. PAST SURGICAL HISTORY: Bladder catheter insertion, carpal tunnel surgery, cystoscopy, laparoscopic gastric bypass surgery, repair of the eardrum as a child, paravaginal defect repair, repair of bladder and vaginal cystocele, puncture and drainage of left breast cyst, vaginal sling procedure for stress incontinence, repair of vaginal prolapse, total abdominal hysterectomy with removal of tubes. MEDICATIONS: The patient is on atorvastatin 10 mg p.o. at bedtime, biotin 800 mcg p.o. daily, calcium carbonate plus vitamin D two tablets p.o. at bedtime, ferrous sulfate 325 mg p.o. daily, oxybutynin chloride 15 mg p.o. daily, Protonix 40 mg p.o. daily, Flintstones 2 tablets p.o. daily, sertraline 150 mg p.o. daily. FAMILY HISTORY: Significant for mother had breast cancer, niece is BRCA1 positive, maternal grandmother had diabetes. SOCIAL HISTORY: . Smoked half pack a day, quit 3-4 years ago. Alcohol approximately 3 drinks on the weekends. No drug use. REVIEW OF SYSTEMS: As per HPI. Rest of review of systems is negative. PHYSICAL EXAMINATION: GENERAL: The patient is of moderate build, not in acute distress. VITAL SIGNS: Temperature 36.6, pulse 72, respiratory rate 19, blood pressure 126/82, oxygen 99% on room air. HEENT: Pupils equal, round and reactive to light. Oral mucosa moist. NECK: No JVD, no neck masses. CARDIOVASCULAR: S1 and S2 heard. Regular rate and rhythm. No murmur, no gallop. RESPIRATORY SYSTEM: Normal AP diameter. No accessory muscle use. No wheezing, no crackles. ABDOMEN: Soft, bowel sounds present. Left CVA tenderness present. Left-sided abdominal tenderness present. Mild guarding, no rigidity, no distention. CENTRAL NERVOUS SYSTEM: Cranial nerves II through XII are grossly intact, nonfocal. EXTREMITIES: No edema, no erythema. LABORATORY DATA: WBC 9.8, hemoglobin 14, hematocrit 41.1, platelets 271. Sodium 141, potassium 3.6, chloride 110, bicarbonate 25, BUN 18, creatinine 0.7, serum glucose 151, calcium 9.7, total bilirubin 0.8, AST 34, ALT 38, alkaline phosphatase 149. Urinalysis, +3 blood, +1 leukocyte esterase, urine bacteria negative. SARS-CoV-2 rapid test pending. IMAGING DATA: CT of the abdomen and pelvis without contrast shows mild left- sided hydroureteronephrosis. A 4 mm calcification of the left hemipelvis, which likely represents a distal ureteral calculus, nonobstructing left nephrolithiasis. No bowel obstruction or bowel wall thickening. Normal appendix. ASSESSMENT AND PLAN: This 50-year-old female presents with left renal colic. 1. Left renal colic, left hydroureteronephrosis: Possible 4 mm left distal ureteral calculus. Despite pain medication, the patient still has significant pain and will admit for pain control and evaluation by urology in the a.m. Keep n.p.o. after midnight, IV fluids, IV Dilaudid p.r.n., Flomax . Await Urology input. 2. Hyperlipidemia: Continue statin. 3. History of gastric bypass, gastroesophageal reflux disease: Continue Protonix. 4. Depression and anxiety: Continue Zoloft. 5. Deep venous thrombosis prophylaxis: Sequential compression devices for now. DISPOSITION: Monitor in the medical floor. Expect to discharge home and follow with family doctor. Level 1 full code. Job ID: [id number] [facility]
[2021-07-03] MEDS ORDERED: HYDROmorphone INJ 0.5 MG/0.5 ML SYR IV PRN (01:11)
[2021-07-03] MEDS ORDERED: POLYETHYLENE (MIRALAX) 17 GM PACK PO PRN (01:11)
[2021-07-03] MEDS: SODIUM CHLORIDE 0.9% 1000ML 1,000 ML IV SCH ×4 (01:21→22:01)
[2021-07-03] MEDS: TAMSULOSIN HCL 0.4 MG CAP PO SCH ×2 (01:56→22:03)
[2021-07-03 06:37] LABS: Basophils # (auto) 0.04 K/uL (0-0.2); Basophils % (auto) 0.5 %; Eosinophils # (auto) 0.22 K/uL (0-0.5); Eosinophils % (auto) 2.9 %; Hematocrit (blood only) 36.8 % (37-47); Hemoglobin 12.6 g/dL (12.0-16.0); Immature Granulocytes # (auto) 0.01 K/uL (0.00-0.02); Immature Granulocytes % (auto) 0.1 %; Lymphocytes # (auto) 3.25 K/uL (1.2-3.4); Lymphocytes % (auto) 42.9 %; Mean Corpuscular Hemoglobin 31.2 pg (25-34); Mean Corpuscular Hgb Conc 34.2 g/dL (32-36); Mean Corpuscular Volume 91.1 fL (80-100); Mean Platelet Volume 10.5 fL (7.4-10.4); Monocytes # (auto) 0.47 K/uL (0.11-0.59); Monocytes % (auto) 6.2 %; Neutrophils # (auto) 3.58 K/uL (1.4-6.5); Neutrophils % (auto) 47.4 %; Platelet Count 237 K/uL (130-400); RDW Coefficient of Variation 13.1 % (11.5-14.5); RDW Standard Deviation 43.4 fL (36.4-46.3); Red Blood Count 4.04 M/uL (4.2-5.4); White Blood Count 7.57 K/uL (4.8-10.8)
[2021-07-03 07:07] LABS: BUN Creatinine Ratio 18.9 (10-20); Calcium 9.3 mg/dl (8.5-10.1); Creatinine Clr Calc Pharmacy 82.5 ml/min; Est GFR (Non-African American) 93.1 ml/min; Magnesium 1.8 mg/dl (1.7-2.4); Potassium 3.6 mmol/L (3.5-5.1)
[2021-07-03] MEDS: OXYBUTYNIN CHLORIDE XL 5 MG TABCR PO SCH (07:43)
[2021-07-03] MEDS: PANTOprazole 40 MG TAB PO SCH (07:43)
[2021-07-03] MEDS: FERROUS SULFATE 325 MG TAB PO SCH (07:43)
[2021-07-03] MEDS: SERTRALINE HCL 50 MG TABLET PO SCH (07:43)
[2021-07-03] MEDS: ACETAMINOPHEN 325 MG TAB PO PRN ×2 (07:46→19:34)
[2021-07-03 07:52] LABS: Estimated Average Glucose 103 mg/dl; Hemoglobin A1C 5.2 % (4.5-5.6)
--- NOTE | 2021-07-03 08:27 | Urology Progress Note ---
Date of Service July 03, 2021 Assessment & Plan (1) Calculus of distal left ureter: (2) Hydroureteronephrosis: (3) Acute left flank pain: Plan: 50yo F admitted with intractable left flank pain secondary to an obstructing 4mm left ureteral stone. - No stone passage noted overnight. - Still with left flank pain and nausea/vomiting this morning. - Afebrile, labs reviewed - Wbc 7.57, Creatinine 0.74 - UA on admission not indicative of infection, urine culture pending - Discussed option for acute stone management with cystoscopy, stent placement today. Discussed outpatient options for conservative measures with max expulsion medical therapy and symptom control. Risks/benefits of each discussed. Ureteral stents were also discussed as well as post-operative issues and pain management. All questions were answered. - Patient wishes to proceed with stent placement. - Plan of care reviewed with Dr. Sue, on-call urologist. - Given her intractable left flank pain and nausea/vomiting in the context of an obstructing 4mm distal left ureteral stone, will proceed with OR for cystoscopy, left retrograde pyelogram, left ureteral stent placement, possible ureteroscopy, stone treatment depending on findings. - Risks and benefits to be reviewed with patient by Dr. Sue. OR notified. Covid test negative. Will cover with IV Ciprofloxacin preoperatively. - Keep NPO and strain all urine. - Continue supportive care, pain control, and tamsulosin. - Will continue to follow. Admission and Anticipated Discharge Date Admission Date: July 02, 2021 Subjective Pt examined at bedside this AM. Awake, resting in bed on arrival. Still with left flank pain, reports pain is 4/10 at present. Having some nausea/vomiting this morning, received Zofran this morning. No fevers. Voiding without issue. No hematuria or dysuria. Straining all urine, no stone passage noted. Has been NPO. Review of Systems Constitutional: as per Subjective / HPI Gastrointestinal: as per Subjective / HPI Genitourinary: as per Subjective / HPI Physical Exam Constitutional: well developed and well nourished; no acute distress and not ill appearing Respiratory: normal respiratory effort and able to speak in complete sentences; no labored breathing and no audible wheezes Gastrointestinal (Abdomen): Inspection/Auscultation: abdomen normal to inspection; abdomen not distended Musculoskeletal: Head/Neck/Chest: normocephalic Skin: No visible rashes or lesions to exposed skin areas Neurologic: moves all extremities and awake Psychiatric: Orientation: alert, oriented x 3 and cooperative Genitourinary: Mild left flank tenderness with palpation Results & Data ([facility]) Vital Signs (Past 12 Hours) Vital Signs Temp Pulse Pulse Resp BP Pulse Ox 07/03/21 07:32 36.7 C 62 18 128/84 98 07/03/21 00:00 74 17 99 07/02/21 21:33 72 19 126/82 99 PG Care Time/CCT Total # of Minutes Spent Total Time Spent with Patient: Total time spent is greater than 50% in coordination of care (as documented) at patient's floor/unit and/or counseling patient: Coding Level of Care Code 48923 Subseq Hosp Care Lvl 2 Diagnoses Calculus of distal left ureter N20.1 Hydroureteronephrosis N13.30 Acute left flank pain R10.9
[2021-07-03] MEDS: ONDANSETRON INJ 2 MG/ML 2 ML VIAL IV PRN (08:41)
--- NOTE | 2021-07-03 10:13 | XRay Report ---
KUB HISTORY: left ureteral stone COMPARISON: Abdomen and pelvis CT 07/02/2021. FINDINGS: The bowel gas pattern is unremarkable. There are no dilated loops of small bowel to suggest an obstruction. MIRANDA deep pelvis remain unchanged. These are indeterminate but favor phleboliths . The patient's distal left ureteral stone is not clearly identified and could be obscured by overlyi ng bowel gas. The patient's left renal stone is also not identified due to overlying bowel gas. No ri ght renal calculi. Suture material again noted within the left side the abdomen. No pneumoperitoneum or pneumatosis. IMPRESSION: No renal or ureteral stones identified. These are likely obscured by overlying bowel gas. ACT 112: Negative or not required by law. Electronically signed by: Torsten Judd M.D. 07/03/2021 10:11 AM
[2021-07-03] MEDS: CIPROFLOXACIN / D5W 400 MG/200 ML BAG IV SCH (13:01)
[2021-07-03] MEDS ORDERED: ONDANSETRON INJ 2 MG/ML 2 ML VIAL IV PRN (15:07)
[2021-07-03] MEDS ORDERED: ATROPINE SULFATE 0.1 MG/ML 10ML SYR IV PRN (15:07)
[2021-07-03] MEDS ORDERED: ePHEDrine sulfate 50 MG/ML AMP IV PRN (15:07)
[2021-07-03] MEDS ORDERED: fentaNYL citrate 100 MCG/2 ML VIAL IV PRN (15:07)
--- NOTE | 2021-07-03 15:12 | Anesthesiology Consultation ---
Date of Service July 03, 2021 Assessment & Plan (1) Encounter for pre-operative examination: Chart Review Chart Review: Acceptable Risk for Surgery and Patient NOT seen in Pre Admission Testing Consults Requested none History Surgery Operation Date: 07/03/21 14:30 Proposed Procedures p Cystoscopy, Left Retrograde Pyelogram, Left Ureteral Stent Placement, Possible Ureteroscopy, Possible Stone Treatment - Bhupinder Sue MD Height/Weight Height: 5 ft 1 in Weight: 75.3 kg Allergies Allergy/AdvReac Type Severity Reaction Status Date / Time prednisone Allergy Unknown UNKNOWN Verified 07/02/21 22:20 JAI Inhibitors AdvReac Unknown Cough Verified 07/02/21 22:20 Penicillins AdvReac Unknown YEAST Verified 07/02/21 22:20 INFECTION Medications Home Medications Medication Instructions Recorded Confirmed Last Taken atorvastatin 10 mg tablet 10 mg PO HS 07/02/21 07/02/21 07/01/21 biotin 800 mcg tablet 800 mcg PO DAILY 07/02/21 07/02/21 07/02/21 calcium carbonate 500 mg-vitamin 2 tab PO HS 07/02/21 07/02/21 07/01/21 D3 3.125 mcg (125 unit) tablet ferrous sulfate 325 mg (65 mg 325 mg PO DAILY 07/02/21 07/02/21 07/02/21 iron) tablet oxybutynin chloride 15 mg 15 mg PO DAILY 07/02/21 07/02/21 07/02/21 tablet,extended release 24 hr pantoprazole 40 mg tablet,delayed 40 mg PO DAILY 07/02/21 07/02/21 07/02/21 release pediatric multivitamin no.76 2 tab PO DAILY 07/02/21 07/02/21 07/02/21 (Flintstones Complete) sertraline 100 mg tablet 150 mg PO DAILY 07/02/21 07/02/21 07/02/21 Active Medications Generic Name Dose Route Start Last Admin Trade Name Freq PRN Reason Stop Dose Admin Acetaminophen 650 mg 07/03/21 01:11 07/03/21 07:46 Acetaminophen 325 Mg Tab PO 08/02/21 01:10 650 mg Q4H PRN Administration pain/fever Ferrous Sulfate 325 mg 07/03/21 09:00 07/03/21 07:43 Ferrous Sulfate 325 Mg Tab PO 08/02/21 08:59 325 mg DAILY NAS Administration Sodium Chloride 1,000 mls @ 125 mls/hr 07/03/21 01:11 07/03/21 07:47 Nss 1000ml IV 08/02/21 01:10 125 mls/hr .Q8H NAS Administration Ciprofloxacin 400 mg in 200 mls @ 100 mls/hr 07/03/21 12:30 07/03/21 13:01 Cipro / D5w IV 07/04/21 12:29 100 mls/hr PREOP NAS Administration Protocol Ondansetron HCl 4 mg 07/03/21 01:11 07/03/21 08:41 Ondansetron Inj 2 Mg/Ml 2 Ml Vial IV 08/02/21 01:10 4 mg Q6H PRN Administration Nausea Oxybutynin Chloride 15 mg 07/03/21 09:00 07/03/21 07:43 Oxybutynin Chloride Xl 5 Mg Tabcr PO 08/02/21 08:59 15 mg DAILY NAS Administration Pantoprazole Sodium 40 mg 07/03/21 09:00 07/03/21 07:43 Pantoprazole 40 Mg Tab PO 08/02/21 08:59 40 mg DAILY NAS Administration Sertraline HCl 150 mg 07/03/21 09:00 07/03/21 07:43 Sertraline Hcl 50 Mg Tablet PO 08/02/21 08:59 150 mg DAILY NAS Administration Tamsulosin HCl 0.4 mg 07/03/21 01:11 07/03/21 01:56 Tamsulosin Hcl 0.4 Mg Cap PO 08/02/21 01:10 0.4 mg HS NAS Administration Past Medical History Medical History Asthma Dyslipidemia GERD (gastroesophageal reflux disease) High blood pressure Past Surgical History Surgical History History of hysterectomy Social History Smoking Status: Former smoker Do You Dip or Chew Tobacco: No Hx Alcohol Use: Yes Alcohol type: hard liquor alcohol intake frequency: holidays/special occasions only Hx Substance Use: No Physical Exam Vital Signs Last Vital Signs Temp 36.7 C 07/03/21 07:32 Pulse 62 07/03/21 07:32 Resp 18 07/03/21 07:32 BP 128/84 07/03/21 07:32 Pulse Ox 98 07/03/21 07:32 Testing Laboratory Results 07/03/21 05:56 07/03/21 05:56 Hemoglobin A1c 5.2 % (4.5-5.6) 07/03/21 05:56 Urine Color Yellow 07/02/21 20:02 Urine Appearance Clear (Clear) 07/02/21 20:02 Urine pH 6.5 (4.5-7.5) 07/02/21 20:02 Ur Specific [place] 1.005 (1.000-1.030) 07/02/21 20:02 Urine Protein Negative (Negative) 07/02/21 20:02 Urine Glucose (UA) Negative (Negative) 07/02/21 20:02 Urine Ketones Negative (Negative) 07/02/21 20:02 Urine Nitrite Negative (Negative) 07/02/21 20:02 Ur Leukocyte Esterase 1+ (Negative) H 07/02/21 20:02 Urine WBC (Auto) 1-5 /hpf (0-5) 07/02/21 20:02 Urine RBC (Auto) 5-10 /hpf (0-4) H 07/02/21 20:02 U Hyaline Cast (Auto) 0 /lpf (0-5) 07/02/21 20:02 U Epithel Cells (Auto) 5-10 /lpf (0-5) H 07/02/21 20:02 Urine Bacteria (Auto) Negative (Negative) 07/02/21 20:02 07/02/21 17:33 Urine Culture - Preliminary Urine,Clean Catch Pin-point growth present, reincubating. Electrocardiogram 07/17/20 DICTATED BY:Kin Staples MD Test Reason : Blood Pressure : / mmHG Vent. Rate : 077 BPM Atrial Rate : 077 BPM P-R Int : 168 ms QRS Dur : 084 ms QT Int : 380 ms P-R-T Axes : 067 021 041 degrees QTc Int : 430 ms Normal sinus rhythm Normal ECG When compared with ECG of 22-MAY-2017 16:07, No significant change was found Confirmed by Kin Staples ([id number]) on 07/18/2020 8:46:14 AM
[2021-07-03] MEDS ORDERED: ONDANSETRON INJ 2 MG/ML 2 ML VIAL ONE (16:17)
[2021-07-03] MEDS ORDERED: MIDAZOLAM HCL 1 MG/ML 2ML VIAL ONE (16:17)
[2021-07-03] MEDS ORDERED: LIDOCAINE 2% 2 ML VIAL/AMP(20MG/ML) INFIL ONE (16:17)
[2021-07-03] MEDS ORDERED: PROPOFOL IV EMULSION 10 MG/ML 20 ML VIAL IV ONE (16:17)
[2021-07-03] MEDS ORDERED: fentaNYL citrate 100 MCG/2 ML VIAL ONE (16:17)
[2021-07-03] MEDS ORDERED: DEXAMETHASONE SOD INJ 4 MG/ML VIAL ONE (16:17)
--- NOTE | 2021-07-03 16:52 | Hospitalist Progress Note ---
Date of Service July 03, 2021 Assessment & Plan (1) Calculus of distal left ureter: (2) Hydroureteronephrosis: (3) GERD (gastroesophageal reflux disease): Plan: Left ureteral calculus (4mm, distal) with mild hydroureteronephrosis- CT A/P reviewed. Currently being managed conservatively with analgesics, flomax, ivf. Seen by uro- plan for OR today noted. UA with no evidence of infection. GERD- on pPI H/o gastric bypass HLD- on statin Admission and Anticipated Discharge Date Admission Date: July 02, 2021 Subjective Complaining of nausea. Still with pain. No fever, chills, chest pain, vomiting, dysuria. This is her first stone. Voiding without issues. During my encounter this morning, she wanted to see if she can pass the stone spontaneously herself today; if not go for OR tomorrow. Physical Exam Physical Exam: General: Lying in bed, uncomfortable due to pain and nausea, on room air HEENT: EOMI, ARY, MMM Chest: Clear breath sounds bilaterally, no wheezes or crackles CVS: Regular rate and rhythm, normal heart sounds, no murmur Abdomen: Soft, not distended, normal bowel sounds Neuro: Awake, alert, oriented, conversing well, non focal Extremities: No cyanosis, clubbing or edema Results & Data Results & Data ([facility]) Vital Signs (Past 12 Hours) Vital Signs Temp Pulse Pulse Resp BP Pulse Ox 07/03/21 16:28 36.7 C 52 L 18 178/96 H 99 07/03/21 15:41 36.7 C 55 L 18 156/86 H 99 07/03/21 07:32 36.7 C 62 18 128/84 98 Laboratory Results Short CBC 07/02/21 07/03/21 Range/Units 17:38 05:56 WBC 9.85 7.57 (4.8-10.8) K/uL Hgb 14.0 12.6 (12.0-16.0) g/dL Hct 40.1 36.8 L (37-47) % Plt Count 271 237 (130-400) K/uL BMP 07/02/21 07/03/21 17:38 05:56 Sodium 141 145 Potassium 3.6 3.6 Chloride 110 H 113 H Carbon Dioxide 25 28 BUN 18 14 Creatinine 0.72 0.74 Glucose 151 H 85 Calcium 9.7 9.3 Liver Function 07/02/21 Range/Units 17:38 Total Bilirubin 0.8 (0.2-1.0) mg/dl AST 34 (13-39) U/L ALT 38 (7-52) U/L Alkaline Phosphatase 149 H (34-104) U/L Albumin 4.2 (3.4-5.0) gm/dl Urine 07/02/21 07/02/21 Range/Units 17:33 20:02 Urine Color Yellow Yellow Urine Appearance Clear Clear (Clear) Urine pH 6.0 6.5 (4.5-7.5) Ur Specific [place] 1.007 1.005 (1.000-1.030) Urine Protein Negative Negative (Negative) Urine Glucose (UA) Negative Negative (Negative) Diagnostic Findings KUB X-Ray 07/03/21 09:33 KUB HISTORY: left ureteral stone COMPARISON: Abdomen and pelvis CT 07/02/2021. FINDINGS: The bowel gas pattern is unremarkable. There are no dilated loops of small bowel to suggest an obstruction. MIRANDA deep pelvis remain unchanged. These are indeterminate but favor phleboliths. The patient's distal left ureteral stone is not clearly identified and could be obscured by overlying bowel gas. The patient's left renal stone is also not identified due to overlying bowel gas. No right renal calculi. Suture material again noted within the left side the abdomen. No pneumoperitoneum or pneumatosis. IMPRESSION: No renal or ureteral stones identified. These are likely obscured by overlying bowel gas. ACT 112: Negative or not required by law. Electronically signed by: Torsten Judd M.D. 07/03/2021 10:11 AM Medications Administered Current Inpatient Medications Acetaminophen (Acetaminophen 325 Mg Tab) 650 mg PO Q4H PRN PRN Reason: pain/fever Stop: 08/02/21 01:10 Last Admin: 07/03/21 07:46 Dose: 650 mg Documented by: Atorvastatin Calcium (Atorvastatin 10 Mg Tab) 10 mg PO HS NAS Stop: 08/02/21 20:59 Atropine Sulfate (Atropine Sulfate 0.1 Mg/Ml 10ml Syr) 0.5 mg IV Q1M PRN PRN Reason: PACU Use-HR<40 &/or Bradycardi Stop: 07/03/21 23:07 Ephedrine Sulfate (Ephedrine Sulfate 50 Mg/Ml Amp) 5 mg IV Q5M PRN PRN Reason: PACU Use Only-SBP<90 mmHg Stop: 07/03/21 23:07 Fentanyl Citrate (Fentanyl Citrate 100 Mcg/2 Ml Vial) 25 mcg IV Q5M PRN PRN Reason: PACU Use Only-Pain Stop: 07/03/21 23:07 Ferrous Sulfate (Ferrous Sulfate 325 Mg Tab) 325 mg PO DAILY [facility] Stop: 08/02/21 08:59 Last Admin: 07/03/21 07:43 Dose: 325 mg Documented by: Hydromorphone HCl (Hydromorphone Inj 0.5 Mg/0.5 Ml Syr) 0.5 mg IV Q3H PRN PRN Reason: Pain Stop: 07/17/21 01:10 Sodium Chloride (Nss 1000ml) 1,000 mls @ 125 mls/hr IV .Q8H [facility] Stop: 08/02/21 01:10 Last Admin: 07/03/21 15:54 Dose: 125 mls/hr Documented by: Ciprofloxacin (Cipro / D5w) 400 mg in 200 mls @ 100 mls/hr IV PREOP [facility]; Protocol Stop: 07/04/21 12:29 Last Infusion: 07/03/21 15:19 Dose: Infused Documented by: Ondansetron HCl (Ondansetron Inj 2 Mg/Ml 2 Ml Vial) 4 mg IV Q6H PRN PRN Reason: Nausea Stop: 08/02/21 01:10 Last Admin: 07/03/21 08:41 Dose: 4 mg Documented by: Ondansetron HCl (Ondansetron Inj 2 Mg/Ml 2 Ml Vial) 4 mg IV ONCE PRN PRN Reason: PACU Use Only-Nausea/Vomiting Stop: 07/03/21 23:07 Oxybutynin Chloride (Oxybutynin Chloride Xl 5 Mg Tabcr) 15 mg PO DAILY [facility] Stop: 08/02/21 08:59 Last Admin: 07/03/21 07:43 Dose: 15 mg Documented by: Pantoprazole Sodium (Pantoprazole 40 Mg Tab) 40 mg PO DAILY [facility] Stop: 08/02/21 08:59 Last Admin: 07/03/21 07:43 Dose: 40 mg Documented by: Polyethylene Glycol (Polyethylene (Miralax) 17 Gm Pack) 17 gm PO DAILY PRN PRN Reason: Constipation Stop: 08/02/21 01:10 Sertraline HCl (Sertraline Hcl 50 Mg Tablet) 150 mg PO DAILY NAS Stop: 08/02/21 08:59 Last Admin: 07/03/21 07:43 Dose: 150 mg Documented by: Tamsulosin HCl (Tamsulosin Hcl 0.4 Mg Cap) 0.4 mg PO HS [facility] Stop: 08/02/21 01:10 Last Admin: 07/03/21 01:56 Dose: 0.4 mg Documented by:
--- NOTE | 2021-07-03 17:13 | Operative Report ---
PG Post Operative Report Pre & Post Diagnosis Operation Date: 07/03/21 14:30 Pre-Op Diagnosis: LEFT FLANK PAIN Post-Op Diagnosis: LEFT FLANK PAIN I identified the patient and participated in the time-out.: Yes Procedure Operation Date: 07/03/21 14:30 Actual Procedures p Cystoscopy, Left Retrograde Pyelogram, Left Ureteral Stent Placement, Possible Ureteroscopy, Possible Stone Treatment(Left) - Bhupinder Sue MD Surgeon Satya Sue MD [employer] Operator none Estimated Blood Loss 0 Findings Consistent with Post-Op Diagnosis Specimens none Description of Procedure The patient was identified in the preoperative holding area, appropriate informed consents were reviewed and completed and the patient was transferred to the operative suite. Upon arrival, appropriate antibiotics and anesthesia were administered and the patient was placed in dorsal lithotomy position and prepped and draped in sterile fashion. Begin the case I passed a 22 Macedonian cystoscope with 30 degree lens. Inspection revealed a healthy-appearing bladder. Ureteral orifices were in orthotopic position. There were no stones within the bladder. Turned my attention to the left UO and cannulated with a sensor wire 5 Macedonian open-ended catheter. As the wire advanced the kidney there was a discharge of some bloody urine. I left this wire in place and advanced a semirigid ureteroscope into the bladder and into the ureter alongside the wire. As I advanced up I found one area of edema and just above it was a stone impacted into the wall of the ureter. I was able to free it from its site of impaction and fragmented with a 272 m laser fiber. I irrigated these fragments out of the ureter. I repeated ureteroscopy to the max extent allowable with the scope and saw no other stones. There is no other area of inflammation. I did place a 6 x 24 stent with a good curl in the kidney as well as the bladder. A string was left attached to the distal aspect of the stent. She was reversed of anesthesia and taken to the recovery room in stable condition. There were no complications. I attest to the content of the Intraoperative Record and any orders documented therein. Any exceptions are noted below.
--- NOTE | 2021-07-03 17:23 | Anesthesiology Progress Note ---
Date of Service July 03, 2021 Anesthesia Post Procedure Vital Signs Vital Signs: Temp Pulse Pulse Resp BP Pulse Ox 07/03/21 16:28 36.7 C 52 L 18 178/96 H 99 07/03/21 15:41 36.7 C 55 L 18 156/86 H 99 07/03/21 07:32 36.7 C 62 18 128/84 98 07/03/21 00:00 74 17 99 07/02/21 21:33 72 19 126/82 99 07/02/21 20:10 70 20 155/90 H 97 Pain Intensity Left Flank: Pain Intensity: 8 Transfer of Care Handoff Completed per policy Notes Mental Status: alert / awake / arousable and participated in evaluation Patient Amnestic to Procedure: Yes Nausea / Vomiting: adequately controlled Pain: adequately controlled Airway Patency, RR, SpO2: stable & adequate BP & HR: stable & adequate Hydration State: stable & adequate Anesthetic Complications: no major complications apparent and Pt Satisfied with anesthetic care
--- NOTE | 2021-07-03 17:35 | Fluoroscopy Report ---
FL retrograde includes kub HISTORY: 50 years-old Female CYSTO left-sided cystourethrogram COMPARISON: CT abdomen and pelvis 07/02/2021 TECHNIQUE: 4 spot fluoroscopic images of the abdomen were obtained utilizing 4.2 seconds fluoroscopy time FINDINGS: A guidewire is noted within the left ureter. Subsequent images demonstrate deployment of a stent, the proximal portion appearing in satisfactory positioning. The distal portion was not imaged. IMPRESSION: Fluoroscopic assistance as above. ACT 112: Negative or not required by law. The above report was generated using voice recognition software. It may contain grammatical, syntax o r spelling errors. Electronically signed by: Reece Negron M.D. 07/03/2021 5:34 PM
[2021-07-03] MEDS ORDERED: ATORVASTATIN 10 MG TAB PO SCH (21:00)
[2021-07-04] MEDS: SODIUM CHLORIDE 0.9% 1000ML 1,000 ML IV SCH ×2 (05:41→15:28)
[2021-07-04] MEDS: CIPROFLOXACIN / D5W 400 MG/200 ML BAG IV SCH (05:42)
[2021-07-04] MEDS: PANTOprazole 40 MG TAB PO SCH (07:46)
[2021-07-04] MEDS: SERTRALINE HCL 50 MG TABLET PO SCH (07:46)
[2021-07-04] MEDS: OXYBUTYNIN CHLORIDE XL 5 MG TABCR PO SCH (07:46)
[2021-07-04] MEDS: FERROUS SULFATE 325 MG TAB PO SCH (07:47)
--- NOTE | 2021-07-04 09:01 | Urology Progress Note ---
Date of Service July 04, 2021 Assessment & Plan (1) Calculus of distal left ureter: (2) Hydroureteronephrosis: (3) Acute left flank pain: Plan: 50yo F admitted with intractable left flank pain secondary to an obstructing 4mm left ureteral stone. - POD #1 s/p Cystoscopy, Left Retrograde Pyelogram, Ureteroscopy, Stone treatment, Left Ureteral Stent Placement with Dr. Sue. - Pt subjectively feeling much better today, minimal stent discomfort. - Remains afebrile, VSS. Labs reviewed - creatinine 0.73. - UA on admission not indicative of infection, Urine culture with pin-point growth, re-incubating - IV Cipro given x 2 doses - Voiding spontaneously without difficulty, output appears adequate. Plan- - Tethered stent removed at bedside this morning without difficulty, pt tolerated well. - OK for discharge from perspective. - Will arrange outpatient follow-up with our service for continued care. - Thank you for allowing us to participate in the acute care of Ms. Reza. Please reconsult us with additional questions, concerns or changes in patient status. Admission and Anticipated Discharge Date Admission Date: July 02, 2021 Supervising Physician Co-Signing Physician Notes I have discussed Ms. Reza's case with MADELINE Harris and agree with the above documentation. She is doing well today and tolerated stent removal at the bedside. We will arrange outpatient follow-up with urology office. Urology will sign off for now, please call with any questions or concerns. Subjective Pt examined at bedside this AM. Awake, sitting in bedside chair on arrival. Reports feeling significantly better today. No fevers or chills. Tolerating diet, no nausea or vomiting. Minimal stent discomfort. Tethered stent intact to right thigh. Voiding without issue, some mild hematuria and dysuria. Review of Systems Constitutional: as per Subjective / HPI Gastrointestinal: as per Subjective / HPI Genitourinary: as per Subjective / HPI Physical Exam Constitutional: well developed and well nourished; no acute distress and not ill appearing Respiratory: normal respiratory effort and able to speak in complete sentences; no labored breathing and no audible wheezes Gastrointestinal (Abdomen): Inspection/Auscultation: abdomen normal to inspection; abdomen not distended Musculoskeletal: Head/Neck/Chest: normocephalic Skin: No visible rashes or lesions to exposed skin areas Neurologic: moves all extremities and awake Psychiatric: Orientation: alert, oriented x 3 and cooperative Results & Data ([facility]) Vital Signs (Past 12 Hours) Vital Signs Temp Pulse Resp BP Pulse Ox 07/04/21 07:06 36.9 C 72 16 119/84 95 07/04/21 02:42 36.7 C 62 15 129/75 94 07/03/21 21:34 36.6 C 64 16 146/87 H 95 PG Care Time/CCT Total # of Minutes Spent Total Time Spent with Patient: Total time spent is greater than 50% in coordination of care (as documented) at patient's floor/unit and/or counseling patient: Coding Level of Care Code 15644 Subseq Hosp Care Lvl 2 Diagnoses Calculus of distal left ureter N20.1 Hydroureteronephrosis N13.30 Acute left flank pain R10.9
[2021-07-04 09:28] LABS: BUN Creatinine Ratio 15.1 (10-20); Calcium 9.6 mg/dl (8.5-10.1); Creatinine Clr Calc Pharmacy 83.7 ml/min; Est GFR (African American) 109.7 ml/min; Est GFR (Non-African American) 94.7 ml/min; Potassium 3.4 mmol/L (3.5-5.1)
[2021-07-04] MEDS: ACETAMINOPHEN 325 MG TAB PO PRN (11:50)
[2021-07-04] MEDS: ONDANSETRON INJ 2 MG/ML 2 ML VIAL IV PRN (12:12)
[2021-07-04] MEDS ORDERED: PHENAZOPYRIDINE HCL 200 MG TAB PO PRN (12:41)
[2021-07-04] MEDS ORDERED: IBUPROFEN 600 MG TAB PO PRN (12:45)
[2021-07-04] MEDS ORDERED: traMADol HCL 50 MG TABLET PO PRN (13:51)
[2021-07-04] MEDS ORDERED: HYDROmorphone INJ 0.5 MG/0.5 ML SYR IV PRN (13:52)
--- NOTE | 2021-07-04 17:24 | Discharge Summary ---
Date of Service July 04, 2021 Admission HPI Per Admitting Provider CHIEF COMPLAINT: Left flank pain. HISTORY OF PRESENT ILLNESS: This is a 50-year-old female with past medical history significant for hyperlipidemia, prediabetes, recurrent sinusitis, hypertension, status post gastric bypass, history of migraines, depression, mixed urge and stress incontinence, generalized anxiety disorder, presents with left flank pain starting today morning and also some blood in the urine. The pain is radiating from the left flank to the groin. No burning micturition, no fevers, no nausea, no vomiting. Currently, the patient in the ER required couple doses of pain medication and nausea medication. Still she is having pain. Imaging studies showed 4 mm left distal ureteral calculus. Hemodynamically stable. Denies any headache, no blurred visions, no earache, no runny nose, no sore throat, no cough, no shortness of breath, no chest pain, no diarrhea or constipation. No swelling in the legs. Admission Exam Per Admitting Provider GENERAL: The patient is of moderate build, not in acute distress. VITAL SIGNS: Temperature 36.6, pulse 72, respiratory rate 19, blood pressure 126/82, oxygen 99% on room air. HEENT: Pupils equal, round and reactive to light. Oral mucosa moist. NECK: No JVD, no neck masses. CARDIOVASCULAR: S1 and S2 heard. Regular rate and rhythm. No murmur, no gallop. RESPIRATORY SYSTEM: Normal AP diameter. No accessory muscle use. No wheezing, no crackles. ABDOMEN: Soft, bowel sounds present. Left CVA tenderness present. Left-sided abdominal tenderness present. Mild guarding, no rigidity, no distention. CENTRAL NERVOUS SYSTEM: Cranial nerves II through XII are grossly intact, nonfocal. EXTREMITIES: No edema, no erythema. Principal Diagnosis (1) Calculus of distal left ureter: (2) Hydroureteronephrosis: Discharge Exam General: Lying in bed, uncomfortable due to pain and nausea, on room air HEENT: EOMI, ARY, MMM Chest: Clear breath sounds bilaterally, no wheezes or crackles CVS: Regular rate and rhythm, normal heart sounds, no murmur Abdomen: Soft, not distended, normal bowel sounds Neuro: Awake, alert, oriented, conversing well, non focal Extremities: No cyanosis, clubbing or edema Discharge Data Allergies Allergy/AdvReac Type Severity Reaction Status Date / Time prednisone Allergy Unknown UNKNOWN Verified 07/05/21 07:58 JAI Inhibitors AdvReac Unknown Cough Verified 07/05/21 07:58 Penicillins AdvReac Unknown YEAST Verified 07/05/21 07:58 INFECTION Consultations 07/02/21 21:48 ED Decision to Admit Stat 07/03/21 08:00 Consult Urology Routine Procedures Performed Operation Date: 07/03/21 14:30 Actual Procedures p Laser Lithotripsy Holmium(Left) - Bhupinder Sue MD s Cystoscopy, Left Retrograde Pyelogram, Left Ureteral Stent Placement, Ureteroscopy, Stone Treatment(Left)(Left) - Bhupinder Sue MD Ordered Studies 07/02/21 17:31 CT abd pelvis wo con Stat 07/03/21 FL retrograde includes kub Routine KUB HISTORY: left ureteral stone COMPARISON: Abdomen and pelvis CT 07/02/2021. FINDINGS: The bowel gas pattern is unremarkable. There are no dilated loops of small bowel to suggest an obstruction. MIRANDA deep pelvis remain unchanged. These are indeterminate but favor phleboliths. The patient's distal left ureteral stone is not clearly identified and could be obscured by overlying bowel gas. The patient's left renal stone is also not identified due to overlying bowel gas. No right renal calculi. Suture material again noted within the left side the abdomen. No pneumoperitoneum or pneumatosis. IMPRESSION: No renal or ureteral stones identified. These are likely obscured by overlying bowel gas. ACT 112: Negative or not required by law. Electronically signed by: Torsten uJdd M.D. 07/03/2021 10:11 AM Dictated:07/03/21 1007 Transcribed: 07/03/21 1007 FL retrograde includes kub HISTORY: 50 years-old Female CYSTO left-sided cystourethrogram COMPARISON: CT abdomen and pelvis 07/02/2021 TECHNIQUE: 4 spot fluoroscopic images of the abdomen were obtained utilizing 4.2 seconds fluoroscopy time FINDINGS: A guidewire is noted within the left ureter. Subsequent images demonstrate deployment of a stent, the proximal portion appearing in satisfactory positioning. The distal portion was not imaged. IMPRESSION: Fluoroscopic assistance as above. ACT 112: Negative or not required by law. The above report was generated using voice recognition software. It may contain grammatical, syntax or spelling errors. Electronically signed by: Reece Negron M.D. 07/03/2021 5:34 PM Dictated:07/03/211732 Transcribed: 07/03/211732 ABDOMEN AND PELVIS CT WITHOUT CONTRAST CT DOSE: 539.88 mGy.cm HISTORY: Acute left-sided flank pain with hematuria L flank pain TECHNIQUE: Multiaxial CT images of the abdomen and pelvis were performed without contrast. A dose lowering technique was utilized adhering to the principles of ALARA. COMPARISON STUDY: CT abdomen and pelvis 02/08/2017 FINDINGS: The imaged lower chest is unremarkable. No pneumatosis or pneumoperitoneum. Prior gastric bypass. The unenhanced spleen, pancreas, is mildly distended gallbladder, adrenal glands and liver appear unremarkable. Unremarkable right kidney. 4 mm nonobstructing calculus of the superior pole left kidney. There are a few cysts of the left kidney measuring up to 3.8 cm. Mild left-sided hydroureteronephrosis with mild perinephric and periureteral inflammatory stranding. There is a 4 mm calcification within the left hemipelvis on image 360. Unremarkable urinary bladder. No adnexal mass lesions. Aorta and IVC are unremarkable. No bowel obstruction or bowel wall thickening. Scattered small bowel air-fluid levels are likely physiologic. Mild colonic diverticulosis. Normal appendix. Unremarkable soft tissues. Degenerative changes of the spine, pelvis and hips. IMPRESSION: 1. Mild left-sided hydroureteronephrosis. There is a 4 mm calcification within the left hemipelvis which likely represents a distal ureteral calculus. Correlate with urinalysis. 2. Nonobstructing left nephrolithiasis. 3. No bowel obstruction or bowel wall thickening. Normal appendix. 4. Additional findings as above. ACT 112: Negative or not required by law. The above report was generated using voice recognition software. It may contain grammatical, syntax or spelling errors. Electronically signed by: Reece Negron M.D. 07/02/2021 6:43 PM Dictated:07/02/211837 Transcribed: 07/02/211837 Hospital Course (1) Calculus of distal left ureter: (2) Hydroureteronephrosis: (3) GERD (gastroesophageal reflux disease): Present on admission withworsening left flank pain CT abd/pelvis showed Left ureteral calculus (4mm, distal) with mild hydroureteronephrosis S/P Cystoscopy, Left Retrograde Pyelogram, Left Ureteral Stent Placement, Possible Ureteroscopy, Possible Stone Treatment(Left) - Bhupinder Sue MD Tethered stent removed at bedside this morning without difficulty, pt tolerated well. Continue pain control, flomax and pyridium Urine cx showed no bacteria Ok from urology standpoint to discharge home Follow up with urology Clinically stable GERD- on pPI H/o gastric bypass HLD- on statin Total Time Total Time Spent Total Time Spent (In Minutes): 35minutes Discharge Plan Discharge Items Patient Disposition: Home - Self-Care Reason For Visit: LEFT FLANK PAIN Discharge Diagnosis: (1) Calculus of distal left ureter: (2) Hydroureteronephrosis: Condition on Discharge: Good Activity: Resume your previous activity Non-emergency contact: Primary Care Provider and Urologist Call non-emergency contact if: you have any medication questions, your symptoms worsen and your temperature is above 101 Follow-up/Referrals: Karan Fofana MD [Primary Care Provider] - 07/10/21 2:40 pm (Date & Time 07/10/2021 2:40 PM Provider Karan Fofana MD Department [facility] ) Diet: Heart Healthy Ambulatory Orders: US renal/blad retro comp (Routine) Timeframe: 2 Months Location: Determined by Patient Ordered By: Yani Whelan Attending Provider Instructions: Follow up with your primary care provider Dr. Fofana on 07/10/2021 @2:40 PM at the [facility] Follow up with [facility] Keep yourself hydrate Do not drive or operate any machine after taking the oxycodone Please hold next dose if you become drowsy or lethargy Ok to take tylenol for mild to moderate pain Seek medical attention if your symptoms worsening [facility] Provider Instructions: The Urology office will contact you to arrange a follow-up appointment. Please call our office at [phone] with any questions or concerns. We are happy to assist you. When to call [facility] at [phone]: Your urine contains heavy blood clots or you are unable to urinate. You are constantly leaking urine Fever of 101F or higher, chills, nausea, or vomiting Your pain is not relieved with medication Pending Studies at Discharge: No Stand-Alone Forms: My [facility], Work/School Release, Smoking Cessation Medications and DC Order Prescriptions: New phenazopyridine [Pyridium] 200 mg Tablet 200 mg PO Q8H PRN (Reason: bladder spasms/pain) Qty: 20 RF: 0 tamsulosin 0.4 mg Capsule 0.4 mg PO HS Qty: 30 RF: 0 oxycodone 5 mg tablet 5 mg PO Q8H PRN (Reason: severe pain) Qty: 8 RF: 0 Continued oxybutynin chloride 15 mg tablet extended release 24 hr 15 mg PO HS RF: 0 atorvastatin 10 mg tablet 10 mg PO HS RF: 0 pantoprazole 40 mg tablet,delayed release (DR/EC) 40 mg PO QAM RF: 0 sertraline 100 mg tablet 150 mg PO HS RF: 0 biotin 800 mcg Tablet 800 mcg PO QAM RF: 0 Flintstones Complete Tablet,Chewable 2 tab PO QAM RF: 0 ferrous sulfate 325 mg (65 mg iron) Tablet 325 mg PO QAM RF: 0 calcium carbonate-vitamin D3 500 mg-3.125 mcg (125 unit) Tablet 2 tab PO HS RF: 0 No Action rizatriptan 10 mg tablet,disintegrating 10 mg translingual DAILY PRN (Reason: Migraine Headache) RF: 0 ketorolac 10 mg tablet 10 mg PO Q6H PRN (Reason: pain) Qty: 20 RF: 0 Discharge Orders: Discharge Order (Routine); Ordered 07/04/21 Ordered By: Rin Sylvester Admission Data Admit Date/Time: 07/02/21 22:32 Attending Provider: Rin Sylvester Admit Provider: Cesar De La Rosa Primary Care Provider: Karan Fofana Other Providers: Cesar De La Rosa ; Mark Lopez ; Tesfaye Babin ; Bhupinder Sue ; Yani Engel ; Waqar Ortez ; Bertha Pereyra ; Richa Chino ; Dorie Bloom ; Malik Schaffer ; Chase Vaz ; Blanca Fields ; Veena Bloom ; Ori Zamora ; Aayush Manuel Other Interventions: Discharge Summary Assessment (RN) Last Done: 07/04/21 17:49
== END 2021-07-04 18:12 | disposition home or self-care (01) | DRG 661 ==
LOC: ED 16:45 → SUATTDRO 22:32 → 3W 22:32